=== PATIENT | male | born 1965 | race Caucasian/White ===

== ENCOUNTER 2020-11-01 17:34 | Inpatient (IN) ==
[2020-11-01] MEDS ORDERED: ASPIRIN 325 MG TABLET PO STA (18:45)
[2020-11-01] MEDS ORDERED: NITROGLYCERIN 2% OINT 1 INCH/GM PACK TOP STA (18:45)
[2020-11-01] MEDS ORDERED: FUROSEMIDE 40 MG/4 ML VIAL IV STA (18:45)
[2020-11-01 19:49] LABS: Basophils # 0.1 10*3/uL (0.0-0.2); Basophils % 0.6 % (0.0-0.8); Eosinophils # 0.2 10*3/uL (0.0-0.87); Eosinophils % 2.8 % (0.00-10.9); Hematocrit 39.4 VOL% (42.0-52.0); Hemoglobin 12.3 GM/DL (14.0-18.0); Immature Granulocytes % 0.5 %; Immature Granulocytes Absolute 0.04 #; Lymphocytes # 2.3 10*3/uL (1.4-4.0); Lymphocytes % 29.2 % (21.2-54.2); Mean Corpuscular HGB Conc 31.2 GM/DL (32-36); Mean Corpuscular Volume 99.7 FL (87-102); Neutrophils % 60.9 % (38.7-73.9); Platelet Count 200 T/CUMM (130-400); Red Blood Count 3.95 MC/CUMM (3.8-5.5); White Blood Count 7.8 T/CUMM (4-12)
[2020-11-01 20:08] LABS: Alanine Aminotransferase 25 U/L (16-61); Albumin 1.9 G/DL (3.4-5.0); Alkaline Phosphatase 279 U/L (45-117); Aspartate Amino Transferase 28 U/L (0-37); Bilirubin,Total < 0.39 MG/DL (0.2-1.0); Blood Urea Nitrogen 20 MG/DL (7-18); Calcium 7.6 MG/DL (8.5-10.1); Carbon Dioxide 31 MMOL/L (21-32); Estimated Glom Filtration Rate 46 ML/MIN; Glucose 162 MG/DL (74-106); Osmolality,Calculated 289.1 MOS/KG (273-304); Potassium 3.6 MMOL/L (3.5-5.1); Sodium 142 MMOL/L (136-145); Total Protein 5.9 G/DL (6.4-8.2)
[2020-11-01 20:10] LABS: Eosinophils 4 % (0-10); Lymphocytes 18 % (20-55); Segmented Neutrophils 75 % (50-85); Total Cells Counted 100
[2020-11-01 20:11] LABS: Anisocytosis 1+; Atypical Lymphocytes Few; Hypochromasia Slight; Macrocytosis 1+; Microcytosis Slight; Platelet Estimate Normal; Polychromasia Slight
[2020-11-01 20:15] LABS: PT Patient Result 10.9 SECS (10.5-12.0)
[2020-11-01] MEDS ORDERED: carvediloL 6.25 MG TABLET PO STA (21:29)
[2020-11-01] MEDS ORDERED: PIPERACILLIN/TAZOBACTAM 3,375 MG in SODIUM CHLORIDE 0.9% 100 ML IV SCH (21:30)
[2020-11-01] MEDS ORDERED: GLUCAGON 1 MG VIAL IM PRN ×2 (21:31)
[2020-11-01] MEDS ORDERED: MORPHINE 4 MG/1 ML VIAL IV PRN (21:31)
[2020-11-01] MEDS ORDERED: diphenhydrAMINE CAP 25 MG CAPSULE PO PRN (21:31)
[2020-11-01] MEDS ORDERED: ACETAMINOPHEN 325 MG TABLET PO PRN (21:31)
[2020-11-01] MEDS ORDERED: DEXTROSE 50% 25 GM/50 ML VIAL IV PRN ×2 (21:31)
[2020-11-01] MEDS ORDERED: hydrALAZINE 20 MG/1 ML VIAL IV PRN (21:31)
[2020-11-01] MEDS ORDERED: ONDANSETRON 4 MG/2 ML VIAL IV PRN (21:31)
[2020-11-01] MEDS ORDERED: guaiFENesin/DM ER 600-30 MG TABLET PO PRN (21:31)
[2020-11-01 22:21] LABS: Bilirubin,Urine Negative (Negative); Blood, Urine Moderate mg/dL (Negative); Glucose,Urine (UA) 50 mg/dL (Negative); Hyaline Casts,Urine 1 /LPF (0-3); Ketones,Urine Negative (Negative); Nitrite,Urine Negative (Negative); Protein,Urine 100 MG/DL; RBC,Urine 5 /HPF (0-4); Urine Appearance CLEAR (Clear); Urine Color Straw (Yellow); Urine Specific Gravity 1.005 (1.001-1.035); Urine Urobilinogen < 2.0 EU/DL (0.2-1.0)
[2020-11-02] MEDS: LEVOFLOXACIN INJ 750 MG/150 ML PREMIX IV SCH (00:01)
[2020-11-02] MEDS: metroNIDAZOLE INJ 500 MG/100 ML PREMIX IV SCH ×3 (01:55→17:15)
[2020-11-02] MEDS: ALBUTEROL 2.5 MG/3 ML NEB RESP TX SCH ×5 (02:20→19:18)
[2020-11-02 05:34] LABS: Calcium 7.8 MG/DL (8.5-10.1); Osmolality,Calculated 290.4 MOS/KG (273-304); Potassium 3.6 MMOL/L (3.5-5.1)
[2020-11-02 05:37] LABS: Basophils # 0.1 10*3/uL (0.0-0.2); Basophils % 1.1 % (0.0-0.8); Eosinophils # 0.2 10*3/uL (0.0-0.87); Eosinophils % 3.5 % (0.00-10.9); Hematocrit 38.4 VOL% (42.0-52.0); Hemoglobin 11.8 GM/DL (14.0-18.0); Immature Granulocytes % 0.4 %; Immature Granulocytes Absolute 0.02 #; Lymphocytes # 1.5 10*3/uL (1.4-4.0); Lymphocytes % 26.4 % (21.2-54.2); Mean Corpuscular HGB Conc 30.7 GM/DL (32-36); Mean Corpuscular Volume 101.1 FL (87-102); Mean Platelet Volume 10.4 FL (9.6-12.0); Monocytes % 7.4 % (1.7-12.7); Neutrophils % 61.2 % (38.7-73.9); Platelet Count 175 T/CUMM (130-400); Red Cell Distribution Width 14.4 % (9.3-17.3); White Blood Count 5.7 T/CUMM (4-12)
[2020-11-02] MEDS: PANTOPRAZOLE 40 MG TABLET PO SCH (09:49)
[2020-11-02] MEDS: FUROSEMIDE 40 MG/4 ML VIAL IV SCH ×2 (09:50→21:31)
[2020-11-02] MEDS: INSULIN LISPRO 100 UNIT/ML SUBCUT SCH ×4 (10:31→21:45)
[2020-11-02] MEDS: carvediloL 6.25 MG TABLET PO SCH ×2 (10:32→21:29)
[2020-11-02] MEDS: DOCUSATE SODIUM 100 MG CAPSULE PO SCH ×2 (10:32→21:45)
[2020-11-03] MEDS: ALBUTEROL 2.5 MG/3 ML NEB RESP TX SCH ×4 (01:15→18:55)
[2020-11-03] MEDS: metroNIDAZOLE INJ 500 MG/100 ML PREMIX IV SCH ×3 (01:40→17:53)
[2020-11-03 05:10] LABS: Calcium 8.2 MG/DL (8.5-10.1); Osmolality,Calculated 285.4 MOS/KG (273-304); Potassium 4.2 MMOL/L (3.5-5.1); Risk Ratio 2.66; VLDL Cholesterol 12.4 MG/DL
[2020-11-03] MEDS: PANTOPRAZOLE 40 MG TABLET PO SCH (09:53)
[2020-11-03] MEDS: FUROSEMIDE 40 MG/4 ML VIAL IV SCH ×3 (09:53→22:00)
[2020-11-03] MEDS: carvediloL 6.25 MG TABLET PO SCH ×2 (09:53→21:59)
[2020-11-03] MEDS: INSULIN LISPRO 100 UNIT/ML SUBCUT SCH ×4 (10:15→21:59)
[2020-11-03] MEDS: DOCUSATE SODIUM 100 MG CAPSULE PO SCH ×2 (10:17→21:59)
[2020-11-03] MEDS ORDERED: metOLazone 5 MG TABLET PO SCH (11:00)
[2020-11-03 15:30] LABS: Total Volume,Urine 400 ML (400-2000)
[2020-11-03 15:47] LABS: Total Protein 24 Hr Ur Result 1424 MG/24HR (0-149.1)
[2020-11-03 15:48] LABS: Protein/Creatinine Ratio,Urine 3.5 RATIO
[2020-11-03] MEDS: LEVOFLOXACIN INJ 750 MG/150 ML PREMIX IV SCH (21:59)
[2020-11-04] MEDS: ALBUTEROL 2.5 MG/3 ML NEB RESP TX SCH ×4 (00:55→19:21)
[2020-11-04] MEDS: NICOTINE 21 MG/24 HR PATCH TRANSDERM PRN (01:18)
[2020-11-04] MEDS: metroNIDAZOLE INJ 500 MG/100 ML PREMIX IV SCH ×2 (02:10→09:44)
[2020-11-04 05:16] LABS: Basophils # 0.1 10*3/uL (0.0-0.2); Basophils % 0.7 % (0.0-0.8); Eosinophils # 0.1 10*3/uL (0.0-0.87); Hematocrit 39.6 VOL% (42.0-52.0); Hemoglobin 12.2 GM/DL (14.0-18.0); Immature Granulocytes Absolute 0.07 #; Lymphocytes # 1.5 10*3/uL (1.4-4.0); Lymphocytes % 20.1 % (21.2-54.2); Mean Corpuscular HGB Conc 30.8 GM/DL (32-36); Mean Corpuscular Volume 103.1 FL (87-102); Mean Platelet Volume 10.5 FL (9.6-12.0); Monocytes % 7.1 % (1.7-12.7); Neutrophils % 70.1 % (38.7-73.9); Platelet Count 151 T/CUMM (130-400); Red Blood Count 3.84 MC/CUMM (3.8-5.5); Red Cell Distribution Width 14.1 % (9.3-17.3); White Blood Count 7.3 T/CUMM (4-12)
[2020-11-04 05:31] LABS: Calcium 8.3 MG/DL (8.5-10.1); Osmolality,Calculated 293.5 MOS/KG (273-304); Potassium 4.3 MMOL/L (3.5-5.1)
[2020-11-04] MEDS: INSULIN LISPRO 100 UNIT/ML SUBCUT SCH ×4 (09:43→20:54)
[2020-11-04] MEDS: DOCUSATE SODIUM 100 MG CAPSULE PO SCH ×2 (09:43→20:53)
[2020-11-04] MEDS: PANTOPRAZOLE 40 MG TABLET PO SCH (09:43)
[2020-11-04] MEDS: carvediloL 6.25 MG TABLET PO SCH ×2 (09:57→20:53)
[2020-11-04] MEDS: INSULIN GLARGINE 100 UNIT/ML SUBCUT SCH (20:54)
[2020-11-05] MEDS: ALBUTEROL 2.5 MG/3 ML NEB RESP TX SCH ×4 (00:36→18:39)
[2020-11-05] MEDS ORDERED: NOREPINEPHRINE 4 MG/4 ML VIAL IV ONE (02:06)
[2020-11-05 02:11] LABS: Basophils # 0.1 10*3/uL (0.0-0.2); Basophils % 0.6 % (0.0-0.8); Eosinophils # 0.1 10*3/uL (0.0-0.87); Hematocrit 42.2 VOL% (42.0-52.0); Hemoglobin 12.8 GM/DL (14.0-18.0); Immature Granulocytes % 4.2 %; Immature Granulocytes Absolute 0.44 #; Lymphocytes % 18.6 % (21.2-54.2); Mean Corpuscular HGB Conc 30.3 GM/DL (32-36); Mean Corpuscular Volume 103.4 FL (87-102); Mean Platelet Volume 10.5 FL (9.6-12.0); Monocytes % 6.1 % (1.7-12.7); Neutrophils % 69.5 % (38.7-73.9); Platelet Count 170 T/CUMM (130-400); Red Blood Count 4.08 MC/CUMM (3.8-5.5); Red Cell Distribution Width 13.9 % (9.3-17.3); White Blood Count 10.5 T/CUMM (4-12)
[2020-11-05] MEDS: NOREPINEPHRINE 8 MG in SODIUM CHLORIDE 0.9% 242 ML IV PRN (02:13)
[2020-11-05 02:22] LABS: INR 1.2; PT Patient Result 12.7 SECS (10.5-12.0); Partial Thromboplastin Time 27.3 SECS (23.9-33.8)
[2020-11-05] MEDS ORDERED: LACTATED RINGERS 500 ML IV ONE (02:32)
[2020-11-05] MEDS: HYDROCORTISONE 100 MG VIAL IV SCH ×4 (02:32→21:04)
[2020-11-05] MEDS ORDERED: MAGNESIUM SULF RIDER 4 GM/100 ML PREMIX IV PRN (02:40)
[2020-11-05] MEDS ORDERED: POTASSIUM CHLORIDE RIDER 20 MEQ/100 ML PREMIX IV PRN (02:40)
[2020-11-05] MEDS ORDERED: POTASSIUM CHLORIDE RIDER 10 MEQ/100 ML PREMIX IV PRN (02:40)
[2020-11-05 02:57] LABS: Amylase 30 U/L (25-115)
[2020-11-05 03:01] LABS: Albumin 1.9 G/DL (3.4-5.0); Calcium 9.2 MG/DL (8.5-10.1); Osmolality,Calculated 289.7 MOS/KG (273-304); Total Protein 6.2 G/DL (6.4-8.2)
[2020-11-05] MEDS: MIDAZOLAM 100 MG in SODIUM CHLORIDE 0.9% 80 ML IV PRN ×2 (03:09→11:50)
[2020-11-05 03:59] LABS: ABG Base Excess 1.7 MMOL/L (-2.5-2.5); ABG HCO3 25.9 MMOL/L (20-26); ABG Oxygen Saturation 96.9 % (95-100); ABG PH 7.312 (7.35-7.45); ABG PO2 89.4 MM HG (80-95); ABG TCO2 26.3 MMOL/L (23-27)
[2020-11-05] MEDS ORDERED: INSULIN LISPRO 100 UNIT/ML IV SCH (04:00)
[2020-11-05] MEDS: CISATRACURIUM 200 MG in SODIUM CHLORIDE 0.9% 180 ML IV PRN ×2 (04:00→14:20)
[2020-11-05] MEDS ORDERED: INSULIN LISPRO 100 UNIT/ML SUBCUT SCH (04:00)
[2020-11-05] MEDS: fentaNYL INJ 1,250 MCG in SODIUM CHLORIDE 0.9% 225 ML IV PRN ×3 (04:00→10:45)
[2020-11-05 04:24] LABS: Bacteria,Urine Few /HPF (Few); Bilirubin,Urine Negative (Negative); Blood, Urine Moderate mg/dL (Negative); Glucose,Urine (UA) 50 mg/dL (Negative); Ketones,Urine Negative (Negative); Mucus,Urine Few /LPF (Occasional); Nitrite,Urine Negative (Negative); Protein,Urine >=500 MG/DL; RBC,Urine 62 /HPF (0-4); Squamous Epithelial Cell,Urine Occasional /HPF (0-10); Urine Appearance CLOUDY (Clear); Urine Color Amber (Yellow); Urine Specific Gravity 1.022 (1.001-1.035)
[2020-11-05] MEDS: INSULIN REGULAR 100 UNIT/ML IV SCH ×4 (07:05→21:05)
[2020-11-05 07:49] LABS: Basophils % 0.3 % (0.0-0.8); Eosinophils % 0.2 % (0.00-10.9); Hemoglobin 11.7 GM/DL (14.0-18.0); Immature Granulocytes % 1.8 %; Immature Granulocytes Absolute 0.16 #; Lymphocytes % 11.1 % (21.2-54.2); Mean Corpuscular HGB Conc 32.5 GM/DL (32-36); Mean Platelet Volume 10.4 FL (9.6-12.0); Neutrophils % 81.6 % (38.7-73.9); Platelet Count 125 T/CUMM (130-400); Red Blood Count 3.71 MC/CUMM (3.8-5.5); Red Cell Distribution Width 13.5 % (9.3-17.3); White Blood Count 9.1 T/CUMM (4-12)
[2020-11-05 08:01] LABS: INR 1.2; PT Patient Result 13.3 SECS (10.5-12.0); Partial Thromboplastin Time 27.8 SECS (23.9-33.8)
[2020-11-05 08:09] LABS: Calcium 8.9 MG/DL (8.5-10.1); Osmolality,Calculated 289.8 MOS/KG (273-304); Potassium 3.9 MMOL/L (3.5-5.1)
[2020-11-05] MEDS: PANTOPRAZOLE 40 MG VIAL IV SCH (08:15)
[2020-11-05] MEDS: MINERAL OIL/PETROLATUM OPH OINT 3.5 GM TUBE BOTH EYES SCH ×3 (08:20→21:07)
[2020-11-05] MEDS: DOCUSATE SODIUM 100 MG CAPSULE PO SCH ×2 (09:00→21:37)
[2020-11-05] MEDS: carvediloL 6.25 MG TABLET PO SCH ×2 (09:00→21:37)
[2020-11-05] MEDS ORDERED: LIDOCAINE 2% TOP JELLY 20 ML VIAL INTRAURETH ONE ×2 (13:15→14:00)
[2020-11-05 14:04] LABS: Basophils % 0.2 % (0.0-0.8); Hematocrit 33.3 VOL% (42.0-52.0); Hemoglobin 10.8 GM/DL (14.0-18.0); Immature Granulocytes % 1.1 %; Immature Granulocytes Absolute 0.09 #; Lymphocytes % 12.7 % (21.2-54.2); Mean Corpuscular HGB Conc 32.4 GM/DL (32-36); Mean Platelet Volume 10.4 FL (9.6-12.0); Monocytes % 3.9 % (1.7-12.7); Neutrophils % 82.1 % (38.7-73.9); Platelet Count 132 T/CUMM (130-400); Red Blood Count 3.47 MC/CUMM (3.8-5.5); Red Cell Distribution Width 13.5 % (9.3-17.3); White Blood Count 8.1 T/CUMM (4-12)
[2020-11-05] MEDS: fentaNYL INJ 2,500 MCG in SODIUM CHLORIDE 0.9% 200 ML IV PRN ×2 (14:10→20:49)
[2020-11-05 14:15] LABS: INR 1.2; PT Patient Result 13.5 SECS (10.5-12.0)
[2020-11-05 14:52] LABS: Osmolality,Calculated 295.5 MOS/KG (273-304); Potassium 3.7 MMOL/L (3.5-5.1)
[2020-11-05 20:16] LABS: Basophils % 0.2 % (0.0-0.8); Hematocrit 32.1 VOL% (42.0-52.0); Hemoglobin 10.6 GM/DL (14.0-18.0); Immature Granulocytes % 1.1 %; Immature Granulocytes Absolute 0.07 #; Lymphocytes # 0.9 10*3/uL (1.4-4.0); Lymphocytes % 14.1 % (21.2-54.2); Mean Platelet Volume 10.6 FL (9.6-12.0); Monocytes % 4.4 % (1.7-12.7); Neutrophils % 80.2 % (38.7-73.9); Platelet Count 129 T/CUMM (130-400); Red Blood Count 3.38 MC/CUMM (3.8-5.5); Red Cell Distribution Width 13.3 % (9.3-17.3); White Blood Count 6.2 T/CUMM (4-12)
[2020-11-05 20:26] LABS: INR 1.2; PT Patient Result 13.6 SECS (10.5-12.0); Partial Thromboplastin Time 27.6 SECS (23.9-33.8)
[2020-11-05 20:36] LABS: Calcium 8.3 MG/DL (8.5-10.1); Osmolality,Calculated 295.7 MOS/KG (273-304); Potassium 3.4 MMOL/L (3.5-5.1)
[2020-11-05] MEDS: INSULIN GLARGINE 100 UNIT/ML SUBCUT SCH (21:38)
[2020-11-06] MEDS: INSULIN REGULAR 100 UNIT/ML IV SCH ×6 (00:31→21:35)
[2020-11-06] MEDS: MIDAZOLAM 100 MG in SODIUM CHLORIDE 0.9% 80 ML IV PRN ×2 (00:41→18:15)
[2020-11-06] MEDS: ALBUTEROL 2.5 MG/3 ML NEB RESP TX SCH ×4 (01:10→18:18)
[2020-11-06] MEDS: HYDROCORTISONE 100 MG VIAL IV SCH ×4 (03:01→21:44)
[2020-11-06 03:03] LABS: ABG Base Excess 0.6 MMOL/L (-2.5-2.5); ABG Oxygen Saturation 99.7 % (95-100); ABG PCO2 33.2 MM HG (35-48); ABG PH 7.464 (7.35-7.45); ABG TCO2 21.2 MMOL/L (23-27)
[2020-11-06 03:04] LABS: Basophils % 0.1 % (0.0-0.8); Hematocrit 31.5 VOL% (42.0-52.0); Hemoglobin 10.5 GM/DL (14.0-18.0); Immature Granulocytes % 0.9 %; Immature Granulocytes Absolute 0.06 #; Lymphocytes # 0.9 10*3/uL (1.4-4.0); Lymphocytes % 12.8 % (21.2-54.2); Mean Corpuscular HGB Conc 33.3 GM/DL (32-36); Mean Platelet Volume 10.9 FL (9.6-12.0); Monocytes % 3.8 % (1.7-12.7); Neutrophils % 82.4 % (38.7-73.9); Platelet Count 138 T/CUMM (130-400); Red Blood Count 3.35 MC/CUMM (3.8-5.5); Red Cell Distribution Width 13.5 % (9.3-17.3); White Blood Count 6.9 T/CUMM (4-12)
[2020-11-06 03:16] LABS: Osmolality,Calculated 300.4 MOS/KG (273-304); Potassium 3.4 MMOL/L (3.5-5.1)
[2020-11-06] MEDS: fentaNYL INJ 2,500 MCG in SODIUM CHLORIDE 0.9% 200 ML IV PRN ×4 (03:44→21:46)
[2020-11-06 03:47] LABS: Platelet Estimate Adequate
[2020-11-06 03:49] LABS: INR 1.2; PT Patient Result 13.5 SECS (10.5-12.0); Partial Thromboplastin Time 27.4 SECS (23.9-33.8)
[2020-11-06] MEDS: CISATRACURIUM 200 MG in SODIUM CHLORIDE 0.9% 180 ML IV PRN (04:25)
[2020-11-06] MEDS: PANTOPRAZOLE 40 MG VIAL IV SCH (08:10)
[2020-11-06] MEDS: MINERAL OIL/PETROLATUM OPH OINT 3.5 GM TUBE BOTH EYES SCH ×3 (08:15→21:44)
[2020-11-06 08:33] LABS: Basophils % 0.1 % (0.0-0.8); Hematocrit 31.7 VOL% (42.0-52.0); Hemoglobin 10.4 GM/DL (14.0-18.0); Immature Granulocytes % 0.5 %; Immature Granulocytes Absolute 0.04 #; Lymphocytes # 0.9 10*3/uL (1.4-4.0); Mean Corpuscular HGB Conc 32.8 GM/DL (32-36); Mean Corpuscular Volume 94.9 FL (87-102); Mean Platelet Volume 10.6 FL (9.6-12.0); Monocytes % 1.3 % (1.7-12.7); Neutrophils % 86.1 % (38.7-73.9); Platelet Count 126 T/CUMM (130-400); Red Blood Count 3.34 MC/CUMM (3.8-5.5); Red Cell Distribution Width 13.6 % (9.3-17.3); White Blood Count 7.4 T/CUMM (4-12)
[2020-11-06 08:43] LABS: INR 1.3
[2020-11-06 09:00] LABS: Calcium 8.1 MG/DL (8.5-10.1); Osmolality,Calculated 297.7 MOS/KG (273-304); Potassium 3.1 MMOL/L (3.5-5.1)
[2020-11-06] MEDS: carvediloL 6.25 MG TABLET PO SCH ×2 (09:00→21:21)
[2020-11-06] MEDS: DOCUSATE SODIUM 100 MG CAPSULE PO SCH ×2 (09:00→21:21)
[2020-11-06 09:04] LABS: CKMB % 8.5 %
[2020-11-06 09:12] LABS: High Sensitive Troponin I* 327.3 ng/L (0-78)
[2020-11-06] MEDS: NOREPINEPHRINE 8 MG in SODIUM CHLORIDE 0.9% 242 ML IV PRN (10:50)
[2020-11-06] MEDS ORDERED: FOSPHENYTOIN 1,000 MG.PE in SODIUM CHLORIDE 0.9% 250 ML IV ONE (13:30)
[2020-11-06 13:33] LABS: ABG Base Excess -3.7 MMOL/L (-2.5-2.5); ABG HCO3 21.2 MMOL/L (20-26); ABG Oxygen Saturation 93.3 % (95-100); ABG PCO2 48.1 MM HG (35-48); ABG PH 7.292 (7.35-7.45); ABG PO2 83.5 MM HG (80-95); ABG TCO2 20.7 MMOL/L (23-27)
[2020-11-06 13:48] LABS: INR 1.2; PT Patient Result 13.5 SECS (10.5-12.0); Partial Thromboplastin Time 27.6 SECS (23.9-33.8)
[2020-11-06 13:59] LABS: Basophils % 0.2 % (0.0-0.8); Hemoglobin 12.1 GM/DL (14.0-18.0); Immature Granulocytes % 1.3 %; Immature Granulocytes Absolute 0.17 #; Lymphocytes # 1.4 10*3/uL (1.4-4.0); Lymphocytes % 10.3 % (21.2-54.2); Mean Corpuscular HGB Conc 32.7 GM/DL (32-36); Mean Corpuscular Volume 94.9 FL (87-102); Mean Platelet Volume 10.8 FL (9.6-12.0); Monocytes % 3.7 % (1.7-12.7); Neutrophils % 84.5 % (38.7-73.9); Platelet Count 196 T/CUMM (130-400); Red Cell Distribution Width 13.9 % (9.3-17.3)
[2020-11-06 14:04] LABS: White Blood Count 13.1 T/CUMM (4-12)
[2020-11-06 14:06] LABS: Blood Urea Nitrogen 67 MG/DL (7-18); Calcium 8.3 MG/DL (8.5-10.1); Carbon Dioxide 23 MMOL/L (21-32); Estimated Glom Filtration Rate 13 ML/MIN; Glucose 264 MG/DL (74-106); Osmolality,Calculated 302.7 MOS/KG (273-304); Potassium 4.2 MMOL/L (3.5-5.1); Sodium 138 MMOL/L (136-145)
[2020-11-06 14:16] LABS: CKMB % 8.2 %; High Sensitive Troponin I* 363.1 ng/L (0-78)
[2020-11-06] MEDS ORDERED: EPINEPHrine 1 MG/ML VIAL ONE (17:15)
[2020-11-06] MEDS ORDERED: INSULIN REGULAR 100 UNIT/ML SUBCUT SCH (20:00)
[2020-11-06 20:49] LABS: Basophils % 0.1 % (0.0-0.8); Hemoglobin 10.8 GM/DL (14.0-18.0); Immature Granulocytes % 1.2 %; Lymphocytes % 6.3 % (21.2-54.2); Mean Corpuscular HGB Conc 32.7 GM/DL (32-36); Mean Corpuscular Volume 96.2 FL (87-102); Monocytes % 3.5 % (1.7-12.7); Neutrophils % 88.9 % (38.7-73.9); Platelet Count 219 T/CUMM (130-400); Red Blood Count 3.43 MC/CUMM (3.8-5.5); Red Cell Distribution Width 14.3 % (9.3-17.3); White Blood Count 16.4 T/CUMM (4-12)
[2020-11-06 21:00] LABS: INR 1.2; PT Patient Result 13.2 SECS (10.5-12.0); Partial Thromboplastin Time 26.9 SECS (23.9-33.8)
[2020-11-06 21:14] LABS: Osmolality,Calculated 305.5 MOS/KG (273-304); Potassium 3.8 MMOL/L (3.5-5.1)
[2020-11-06] MEDS: INSULIN GLARGINE 100 UNIT/ML SUBCUT SCH (21:43)
[2020-11-06 23:33] LABS: ABG Base Excess -4.7 MMOL/L (-2.5-2.5); ABG HCO3 20.5 MMOL/L (20-26); ABG Oxygen Saturation 95.4 % (95-100); ABG PCO2 42.4 MM HG (35-48); ABG PH 7.312 (7.35-7.45); ABG TCO2 19.2 MMOL/L (23-27)
[2020-11-07] MEDS: INSULIN REGULAR 100 UNIT/ML SUBCUT SCH ×6 (00:25→20:59)
[2020-11-07 03:00] LABS: ABG Base Excess -2.4 MMOL/L (-2.5-2.5); ABG HCO3 22.3 MMOL/L (20-26); ABG Oxygen Saturation 95.5 % (95-100); ABG PCO2 42.8 MM HG (35-48); ABG PH 7.343 (7.35-7.45); ABG PO2 86.2 MM HG (80-95); ABG TCO2 20.8 MMOL/L (23-27)
[2020-11-07] MEDS: HYDROCORTISONE 100 MG VIAL IV SCH ×4 (03:03→21:00)
[2020-11-07 03:11] LABS: Basophils % 0.1 % (0.0-0.8); Hematocrit 35.4 VOL% (42.0-52.0); Hemoglobin 11.5 GM/DL (14.0-18.0); Immature Granulocytes Absolute 0.18 #; Lymphocytes # 1.3 10*3/uL (1.4-4.0); Lymphocytes % 7.6 % (21.2-54.2); Mean Corpuscular HGB Conc 32.5 GM/DL (32-36); Mean Corpuscular Volume 96.2 FL (87-102); Mean Platelet Volume 10.7 FL (9.6-12.0); Monocytes % 3.7 % (1.7-12.7); Neutrophils % 87.6 % (38.7-73.9); Platelet Count 248 T/CUMM (130-400); Red Blood Count 3.68 MC/CUMM (3.8-5.5); Red Cell Distribution Width 14.5 % (9.3-17.3); White Blood Count 17.4 T/CUMM (4-12)
[2020-11-07 03:30] LABS: INR 1.2; PT Patient Result 12.8 SECS (10.5-12.0); Partial Thromboplastin Time 26.5 SECS (23.9-33.8)
[2020-11-07 03:38] LABS: Albumin 1.7 G/DL (3.4-5.0); Bilirubin,Total 0.6 MG/DL (0.2-1.0); Calcium 7.9 MG/DL (8.5-10.1); Osmolality,Calculated 311.4 MOS/KG (273-304)
[2020-11-07 03:46] LABS: Calcium 8.3 MG/DL (8.5-10.1); Osmolality,Calculated 308.5 MOS/KG (273-304); Potassium 3.9 MMOL/L (3.5-5.1)
[2020-11-07] MEDS: NOREPINEPHRINE 8 MG in SODIUM CHLORIDE 0.9% 242 ML IV PRN (05:40)
[2020-11-07] MEDS: ALBUTEROL 2.5 MG/3 ML NEB RESP TX SCH ×4 (07:31→19:04)
[2020-11-07] MEDS: PANTOPRAZOLE 40 MG VIAL IV SCH (08:17)
[2020-11-07] MEDS: MINERAL OIL/PETROLATUM OPH OINT 3.5 GM TUBE BOTH EYES SCH ×3 (08:18→21:18)
[2020-11-07] MEDS: ASPIRIN CHEW 81 MG TABLET PO SCH (09:44)
[2020-11-07] MEDS: carvediloL 6.25 MG TABLET PO SCH (10:23)
[2020-11-07] MEDS: DOCUSATE SODIUM 100 MG CAPSULE PO SCH ×2 (10:34→21:00)
[2020-11-07] MEDS: AZTREONAM 1,000 MG in SODIUM CHLORIDE 0.9% 100 ML IV SCH ×2 (11:24→20:56)
[2020-11-07 12:25] LABS: Hepatitis B Core IgM Quant < 0.05 Index; Hepatitis B Surface Ag Quant < 0.10 Index; Hepatitis B Surface Ag Result Non-Reactive (NonReactive); Hepatitis C Virus Ab Quant 0.05 Index; Hepatitis C Virus Ab Result Non-Reactive (NonReactive)
[2020-11-07 12:33] LABS: HIV Antigen/Antibody Result Nonreactive (Nonreactive)
[2020-11-07] MEDS ORDERED: VANCOMYCIN INJ 2,000 MG in SODIUM CHLORIDE 0.9% 500 ML IV ONE (14:00)
[2020-11-07] MEDS ORDERED: VANCOMYCIN INJ 750 MG in SODIUM CHLORIDE 0.9% 250 ML IV PRN (14:16)
[2020-11-07] MEDS: INSULIN GLARGINE 100 UNIT/ML SUBCUT SCH (20:59)
[2020-11-08] MEDS: ALBUTEROL 2.5 MG/3 ML NEB RESP TX SCH ×4 (00:08→19:23)
[2020-11-08] MEDS: INSULIN REGULAR 100 UNIT/ML SUBCUT SCH ×7 (00:58→23:09)
[2020-11-08] MEDS: HYDROCORTISONE 100 MG VIAL IV SCH ×4 (03:24→20:06)
[2020-11-08] MEDS: AZTREONAM 1,000 MG in SODIUM CHLORIDE 0.9% 100 ML IV SCH ×3 (03:25→19:56)
[2020-11-08 06:07] LABS: Basophils % 0.1 % (0.0-0.8); Hematocrit 30.5 VOL% (42.0-52.0); Hemoglobin 10.3 GM/DL (14.0-18.0); Immature Granulocytes % 0.5 %; Immature Granulocytes Absolute 0.05 #; Lymphocytes % 9.4 % (21.2-54.2); Mean Corpuscular HGB Conc 33.8 GM/DL (32-36); Mean Corpuscular Volume 94.1 FL (87-102); Mean Platelet Volume 10.7 FL (9.6-12.0); Platelet Count 131 T/CUMM (130-400); Red Blood Count 3.24 MC/CUMM (3.8-5.5); Red Cell Distribution Width 14.6 % (9.3-17.3)
[2020-11-08 06:21] LABS: Calcium 8.3 MG/DL (8.5-10.1); Osmolality,Calculated 314.1 MOS/KG (273-304); Potassium 3.5 MMOL/L (3.5-5.1)
[2020-11-08 08:13] LABS: ABG Base Excess -1.6 MMOL/L (-2.5-2.5); ABG HCO3 23.3 MMOL/L (20-26); ABG Oxygen Saturation 97.5 % (95-100); ABG PCO2 39.8 MM HG (35-48); ABG PH 7.385 (7.35-7.45); ABG PO2 108.7 MM HG (80-95); ABG TCO2 24.5 MMOL/L (23-27)
[2020-11-08] MEDS: PANTOPRAZOLE 40 MG VIAL IV SCH (08:21)
[2020-11-08] MEDS: DOCUSATE SODIUM 100 MG CAPSULE PO SCH ×2 (08:25→20:09)
[2020-11-08] MEDS: ASPIRIN CHEW 81 MG TABLET PO SCH (08:25)
[2020-11-08] MEDS: MINERAL OIL/PETROLATUM OPH OINT 3.5 GM TUBE BOTH EYES SCH ×3 (08:34→20:09)
[2020-11-08] MEDS ORDERED: POTASSIUM CHLORIDE RIDER 20 MEQ/100 ML PREMIX IV ONE (14:27)
[2020-11-08] MEDS ORDERED: VANCOMYCIN INJ 750 MG in SODIUM CHLORIDE 0.9% 250 ML IV ONE (17:30)
[2020-11-08] MEDS: INSULIN GLARGINE 100 UNIT/ML SUBCUT SCH (20:06)
[2020-11-09] MEDS: ALBUTEROL 2.5 MG/3 ML NEB RESP TX SCH ×4 (00:12→19:37)
[2020-11-09] MEDS: AZTREONAM 1,000 MG in SODIUM CHLORIDE 0.9% 100 ML IV SCH ×3 (03:10→20:40)
[2020-11-09] MEDS: HYDROCORTISONE 100 MG VIAL IV SCH ×4 (03:10→20:45)
[2020-11-09 03:29] LABS: ABG Base Excess 1.1 MMOL/L (-2.5-2.5); ABG HCO3 25.4 MMOL/L (20-26); ABG Oxygen Saturation 98.7 % (95-100); ABG PCO2 39.3 MM HG (35-48); ABG PH 7.421 (7.35-7.45); ABG TCO2 22.7 MMOL/L (23-27)
[2020-11-09 03:30] LABS: Basophils % 0.1 % (0.0-0.8); Eosinophils % 0.1 % (0.00-10.9); Hematocrit 30.4 VOL% (42.0-52.0); Hemoglobin 10.1 GM/DL (14.0-18.0); Immature Granulocytes % 0.5 %; Immature Granulocytes Absolute 0.06 #; Lymphocytes % 8.7 % (21.2-54.2); Mean Corpuscular HGB Conc 33.2 GM/DL (32-36); Mean Corpuscular Volume 95.3 FL (87-102); Mean Platelet Volume 10.4 FL (9.6-12.0); Monocytes % 4.3 % (1.7-12.7); Neutrophils % 86.3 % (38.7-73.9); Platelet Count 120 T/CUMM (130-400); Red Blood Count 3.19 MC/CUMM (3.8-5.5); Red Cell Distribution Width 14.5 % (9.3-17.3); White Blood Count 11.9 T/CUMM (4-12)
[2020-11-09 03:47] LABS: Albumin 1.6 G/DL (3.4-5.0); Bilirubin,Total 0.4 MG/DL (0.2-1.0); Calcium 7.9 MG/DL (8.5-10.1); Osmolality,Calculated 303.4 MOS/KG (273-304); Potassium 3.5 MMOL/L (3.5-5.1); Total Protein 5.3 G/DL (6.4-8.2)
[2020-11-09 04:07] LABS: Calcium 7.7 MG/DL (8.5-10.1); Osmolality,Calculated 305.3 MOS/KG (273-304); Potassium 3.5 MMOL/L (3.5-5.1)
[2020-11-09] MEDS: INSULIN REGULAR 100 UNIT/ML SUBCUT SCH ×6 (05:54→23:24)
[2020-11-09] MEDS: DOCUSATE SODIUM 100 MG CAPSULE PO SCH ×2 (08:54→20:45)
[2020-11-09] MEDS: ASPIRIN CHEW 81 MG TABLET PO SCH (08:54)
[2020-11-09] MEDS: PANTOPRAZOLE 40 MG VIAL IV SCH (08:56)
[2020-11-09] MEDS: MINERAL OIL/PETROLATUM OPH OINT 3.5 GM TUBE BOTH EYES SCH ×3 (09:02→20:45)
[2020-11-09] MEDS: INSULIN GLARGINE 100 UNIT/ML SUBCUT SCH (20:46)
[2020-11-10] MEDS: ALBUTEROL 2.5 MG/3 ML NEB RESP TX SCH ×4 (01:36→19:17)
[2020-11-10] MEDS: AZTREONAM 1,000 MG in SODIUM CHLORIDE 0.9% 100 ML IV SCH ×3 (03:21→17:49)
[2020-11-10] MEDS: HYDROCORTISONE 100 MG VIAL IV SCH ×4 (03:21→20:39)
[2020-11-10 03:53] LABS: ABG Base Excess 2.6 MMOL/L (-2.5-2.5); ABG HCO3 26.7 MMOL/L (20-26); ABG Oxygen Saturation 99.2 % (95-100); ABG PCO2 39.3 MM HG (35-48); ABG PH 7.441 (7.35-7.45); ABG TCO2 23.9 MMOL/L (23-27)
[2020-11-10 04:01] LABS: Eosinophils % 0.2 % (0.00-10.9); Hematocrit 31.8 VOL% (42.0-52.0); Hemoglobin 10.2 GM/DL (14.0-18.0); Immature Granulocytes % 0.6 %; Immature Granulocytes Absolute 0.07 #; Lymphocytes # 1.1 10*3/uL (1.4-4.0); Mean Corpuscular HGB Conc 32.1 GM/DL (32-36); Mean Corpuscular Volume 96.7 FL (87-102); Mean Platelet Volume 10.5 FL (9.6-12.0); Monocytes % 4.7 % (1.7-12.7); Neutrophils % 84.5 % (38.7-73.9); Platelet Count 148 T/CUMM (130-400); Red Blood Count 3.29 MC/CUMM (3.8-5.5); Red Cell Distribution Width 14.7 % (9.3-17.3); White Blood Count 10.8 T/CUMM (4-12)
[2020-11-10 04:20] LABS: Calcium 8.2 MG/DL (8.5-10.1); Potassium 3.3 MMOL/L (3.5-5.1)
[2020-11-10] MEDS: INSULIN REGULAR 100 UNIT/ML SUBCUT SCH ×5 (04:49→23:58)
[2020-11-10] MEDS: DOCUSATE SODIUM 100 MG CAPSULE PO SCH ×2 (09:19→20:39)
[2020-11-10] MEDS: PANTOPRAZOLE 40 MG VIAL IV SCH (09:19)
[2020-11-10] MEDS: ASPIRIN CHEW 81 MG TABLET PO SCH (09:19)
[2020-11-10] MEDS: MINERAL OIL/PETROLATUM OPH OINT 3.5 GM TUBE BOTH EYES SCH ×3 (09:21→21:52)
[2020-11-10] MEDS ORDERED: HEPARIN 10,000 UNIT/10 ML VIAL IV SCH (09:30)
[2020-11-10] MEDS ORDERED: ALTEPLASE 2 MG VIAL IV SCH (09:30)
[2020-11-10] MEDS ORDERED: VANCOMYCIN INJ 750 MG in SODIUM CHLORIDE 0.9% 250 ML IV ONE (17:00)
[2020-11-10] MEDS: ENOXAPARIN 30 MG/0.3 ML SYRINGE SUBCUT SCH (20:39)
[2020-11-10] MEDS: INSULIN GLARGINE 100 UNIT/ML SUBCUT SCH (20:40)
[2020-11-11] MEDS: ALBUTEROL 2.5 MG/3 ML NEB RESP TX SCH ×4 (02:05→20:27)
[2020-11-11] MEDS: HYDROCORTISONE 100 MG VIAL IV SCH ×3 (02:55→20:31)
[2020-11-11] MEDS: INSULIN REGULAR 100 UNIT/ML SUBCUT SCH ×4 (04:05→19:08)
[2020-11-11 04:09] LABS: ABG Base Excess 3.8 MMOL/L (-2.5-2.5); ABG HCO3 28.3 MMOL/L (20-26); ABG Oxygen Saturation 98.5 % (95-100); ABG PCO2 42.4 MM HG (35-48); ABG PH 7.442 (7.35-7.45); ABG PO2 135.5 MM HG (80-95); ABG TCO2 29.6 MMOL/L (23-27); Eosinophils # 0.1 10*3/uL (0.0-0.87); Eosinophils % 1.6 % (0.00-10.9); Hematocrit 31.4 VOL% (42.0-52.0); Hemoglobin 9.9 GM/DL (14.0-18.0); Immature Granulocytes % 0.7 %; Immature Granulocytes Absolute 0.06 #; Lymphocytes # 1.3 10*3/uL (1.4-4.0); Lymphocytes % 14.4 % (21.2-54.2); Mean Corpuscular HGB Conc 31.5 GM/DL (32-36); Mean Corpuscular Volume 98.7 FL (87-102); Mean Platelet Volume 10.1 FL (9.6-12.0); Monocytes % 5.3 % (1.7-12.7); Platelet Count 149 T/CUMM (130-400); Red Blood Count 3.18 MC/CUMM (3.8-5.5); Red Cell Distribution Width 14.5 % (9.3-17.3); White Blood Count 8.8 T/CUMM (4-12)
[2020-11-11 04:26] LABS: Osmolality,Calculated 316.8 MOS/KG (273-304); Potassium 3.1 MMOL/L (3.5-5.1)
[2020-11-11] MEDS ORDERED: POTASSIUM CHLORIDE 20 MEQ/15 ML UDCUP PER TUBE ONE (07:34)
[2020-11-11] MEDS: PANTOPRAZOLE 40 MG VIAL IV SCH (09:41)
[2020-11-11] MEDS: ASPIRIN CHEW 81 MG TABLET PO SCH (09:41)
[2020-11-11] MEDS: DOCUSATE SODIUM 100 MG CAPSULE PO SCH ×2 (10:09→20:32)
[2020-11-11] MEDS: MINERAL OIL/PETROLATUM OPH OINT 3.5 GM TUBE BOTH EYES SCH ×3 (10:09→21:18)
[2020-11-11] MEDS: AZTREONAM 1,000 MG in SODIUM CHLORIDE 0.9% 100 ML IV SCH (15:46)
[2020-11-11] MEDS: ENOXAPARIN 30 MG/0.3 ML SYRINGE SUBCUT SCH (20:32)
[2020-11-11] MEDS: INSULIN GLARGINE 100 UNIT/ML SUBCUT SCH (20:32)
[2020-11-12] MEDS: ALBUTEROL 2.5 MG/3 ML NEB RESP TX SCH ×4 (00:05→19:35)
[2020-11-12] MEDS: INSULIN REGULAR 100 UNIT/ML SUBCUT SCH ×4 (00:58→18:36)
[2020-11-12 05:04] LABS: Eosinophils # 0.4 10*3/uL (0.0-0.87); Eosinophils % 4.5 % (0.00-10.9); Hematocrit 31.9 VOL% (42.0-52.0); Hemoglobin 10.4 GM/DL (14.0-18.0); Immature Granulocytes % 0.6 %; Immature Granulocytes Absolute 0.05 #; Lymphocytes # 1.1 10*3/uL (1.4-4.0); Lymphocytes % 13.5 % (21.2-54.2); Mean Corpuscular HGB Conc 32.6 GM/DL (32-36); Mean Corpuscular Volume 97.6 FL (87-102); Mean Platelet Volume 10.3 FL (9.6-12.0); Monocytes % 5.5 % (1.7-12.7); Neutrophils % 75.9 % (38.7-73.9); Platelet Count 157 T/CUMM (130-400); Red Blood Count 3.27 MC/CUMM (3.8-5.5); Red Cell Distribution Width 14.5 % (9.3-17.3); White Blood Count 8.2 T/CUMM (4-12)
[2020-11-12 05:08] LABS: ABG Base Excess 4.9 MMOL/L (-2.5-2.5); ABG HCO3 29.8 MMOL/L (20-26); ABG PCO2 45.4 MM HG (35-48); ABG PH 7.435 (7.35-7.45); ABG PO2 115.7 MM HG (80-95); ABG TCO2 31.2 MMOL/L (23-27)
[2020-11-12 05:14] LABS: Calcium 7.9 MG/DL (8.5-10.1); Osmolality,Calculated 324.3 MOS/KG (273-304); Potassium 3.4 MMOL/L (3.5-5.1)
[2020-11-12] MEDS: HYDROCORTISONE 100 MG VIAL IV SCH ×2 (08:29→21:15)
[2020-11-12] MEDS ORDERED: VANCOMYCIN INJ 1,000 MG in SODIUM CHLORIDE 0.9% 250 ML IV PRN (08:30)
[2020-11-12] MEDS: DOCUSATE SODIUM 100 MG CAPSULE PO SCH ×2 (08:32→21:22)
[2020-11-12] MEDS: ASPIRIN CHEW 81 MG TABLET PO SCH (08:32)
[2020-11-12] MEDS: PANTOPRAZOLE 40 MG VIAL IV SCH (08:33)
[2020-11-12] MEDS: MINERAL OIL/PETROLATUM OPH OINT 3.5 GM TUBE BOTH EYES SCH ×3 (08:33→21:33)
[2020-11-12] MEDS ORDERED: levETIRAcetam LIQUID 100 MG/ML 30 ML/BOTTLE PER TUBE SCH ×2 (09:00)
[2020-11-12] MEDS: AZTREONAM 1,000 MG in SODIUM CHLORIDE 0.9% 100 ML IV SCH (15:30)
[2020-11-12] MEDS: ENOXAPARIN 30 MG/0.3 ML SYRINGE SUBCUT SCH (21:22)
[2020-11-12] MEDS: levETIRAcetam LIQUID 100 MG/ML 30 ML/BOTTLE PER TUBE SCH (21:22)
[2020-11-12] MEDS: INSULIN GLARGINE 100 UNIT/ML SUBCUT SCH (21:22)
[2020-11-13] MEDS: INSULIN REGULAR 100 UNIT/ML SUBCUT SCH ×4 (00:02→18:07)
[2020-11-13] MEDS: ALBUTEROL 2.5 MG/3 ML NEB RESP TX SCH ×4 (00:42→19:28)
[2020-11-13 04:18] LABS: ABG Base Excess 6.9 MMOL/L (-2.5-2.5); ABG HCO3 30.7 MMOL/L (20-26); ABG Oxygen Saturation 98.3 % (95-100); ABG PCO2 42.3 MM HG (35-48); ABG PH 7.477 (7.35-7.45); ABG TCO2 25.5 MMOL/L (23-27)
[2020-11-13 04:39] LABS: Basophils % 0.1 % (0.0-0.8); Eosinophils # 0.5 10*3/uL (0.0-0.87); Eosinophils % 5.9 % (0.00-10.9); Hematocrit 28.5 VOL% (42.0-52.0); Hemoglobin 9.3 GM/DL (14.0-18.0); Immature Granulocytes % 0.6 %; Immature Granulocytes Absolute 0.05 #; Lymphocytes # 1.4 10*3/uL (1.4-4.0); Lymphocytes % 18.1 % (21.2-54.2); Mean Corpuscular HGB Conc 32.6 GM/DL (32-36); Mean Corpuscular Volume 97.9 FL (87-102); Mean Platelet Volume 10.4 FL (9.6-12.0); Neutrophils % 70.3 % (38.7-73.9); Platelet Count 153 T/CUMM (130-400); Red Blood Count 2.91 MC/CUMM (3.8-5.5); Red Cell Distribution Width 14.2 % (9.3-17.3)
[2020-11-13 05:07] LABS: Calcium 7.9 MG/DL (8.5-10.1); Osmolality,Calculated 322.7 MOS/KG (273-304)
[2020-11-13] MEDS: DOCUSATE SODIUM 100 MG CAPSULE PO SCH ×2 (08:03→20:25)
[2020-11-13] MEDS: NICOTINE 21 MG/24 HR PATCH TRANSDERM PRN (08:31)
[2020-11-13] MEDS: HYDROCORTISONE 100 MG VIAL IV SCH ×2 (08:31→20:25)
[2020-11-13] MEDS: ASPIRIN CHEW 81 MG TABLET PO SCH (08:31)
[2020-11-13] MEDS: PANTOPRAZOLE 40 MG VIAL IV SCH (08:32)
[2020-11-13] MEDS: levETIRAcetam LIQUID 100 MG/ML 30 ML/BOTTLE PER TUBE SCH ×2 (08:55→20:32)
[2020-11-13] MEDS: MINERAL OIL/PETROLATUM OPH OINT 3.5 GM TUBE BOTH EYES SCH ×3 (08:55→20:48)
[2020-11-13] MEDS: ALPRAZolam 0.25 MG TABLET PER TUBE PRN (10:18)
[2020-11-13] MEDS: POTASSIUM CHLORIDE 20 MEQ/15 ML UDCUP PER TUBE SCH ×3 (10:18→18:08)
[2020-11-13] MEDS: AZTREONAM 1,000 MG in SODIUM CHLORIDE 0.9% 100 ML IV SCH (15:43)
[2020-11-13] MEDS: INSULIN GLARGINE 100 UNIT/ML SUBCUT SCH (20:25)
[2020-11-13] MEDS: ENOXAPARIN 30 MG/0.3 ML SYRINGE SUBCUT SCH (20:25)
[2020-11-14] MEDS: INSULIN REGULAR 100 UNIT/ML SUBCUT SCH ×4 (00:40→18:15)
[2020-11-14] MEDS: ALBUTEROL 2.5 MG/3 ML NEB RESP TX SCH ×4 (00:57→20:38)
[2020-11-14 04:31] LABS: ABG Base Excess 6.7 MMOL/L (-2.5-2.5); ABG HCO3 30.6 MMOL/L (20-26); ABG PCO2 39.8 MM HG (35-48); ABG PH 7.493 (7.35-7.45); ABG TCO2 27.9 MMOL/L (23-27)
[2020-11-14 04:43] LABS: Eosinophils # 0.3 10*3/uL (0.0-0.87); Eosinophils % 3.9 % (0.00-10.9); Hematocrit 30.4 VOL% (42.0-52.0); Hemoglobin 9.3 GM/DL (14.0-18.0); Immature Granulocytes % 0.6 %; Immature Granulocytes Absolute 0.05 #; Lymphocytes # 1.7 10*3/uL (1.4-4.0); Lymphocytes % 20.4 % (21.2-54.2); Mean Corpuscular HGB Conc 30.6 GM/DL (32-36); Mean Corpuscular Volume 101.7 FL (87-102); Mean Platelet Volume 10.8 FL (9.6-12.0); Monocytes % 5.4 % (1.7-12.7); Neutrophils % 69.7 % (38.7-73.9); Platelet Count 168 T/CUMM (130-400); Red Blood Count 2.99 MC/CUMM (3.8-5.5); White Blood Count 8.2 T/CUMM (4-12)
[2020-11-14 05:23] LABS: Osmolality,Calculated 311.4 MOS/KG (273-304)
[2020-11-14 05:28] LABS: Potassium 3.5 MMOL/L (3.5-5.1)
[2020-11-14] MEDS ORDERED: FUROSEMIDE 40 MG/4 ML VIAL IV ONE (07:58)
[2020-11-14] MEDS: ASPIRIN CHEW 81 MG TABLET PO SCH (08:30)
[2020-11-14] MEDS: levETIRAcetam LIQUID 100 MG/ML 30 ML/BOTTLE PER TUBE SCH ×2 (08:30→20:34)
[2020-11-14] MEDS: DOCUSATE SODIUM 100 MG CAPSULE PO SCH ×2 (08:30→20:34)
[2020-11-14] MEDS: PANTOPRAZOLE 40 MG VIAL IV SCH (08:35)
[2020-11-14] MEDS: HYDROCORTISONE 100 MG VIAL IV SCH (08:35)
[2020-11-14] MEDS: ALPRAZolam 0.25 MG TABLET PER TUBE PRN ×2 (08:35→20:35)
[2020-11-14] MEDS: MINERAL OIL/PETROLATUM OPH OINT 3.5 GM TUBE BOTH EYES SCH ×3 (08:40→20:33)
[2020-11-14] MEDS ORDERED: HYDROCORTISONE 100 MG VIAL IV SCH (09:00)
[2020-11-14] MEDS: methylPREDNISolone SOD SUC 40 MG/1 ML VIAL IV SCH ×2 (14:10→20:33)
[2020-11-14] MEDS: AZTREONAM 1,000 MG in SODIUM CHLORIDE 0.9% 100 ML IV SCH (18:20)
[2020-11-14] MEDS: ENOXAPARIN 30 MG/0.3 ML SYRINGE SUBCUT SCH (20:33)
[2020-11-14] MEDS: INSULIN GLARGINE 100 UNIT/ML SUBCUT SCH (20:34)
[2020-11-15] MEDS: ALBUTEROL 2.5 MG/3 ML NEB RESP TX SCH ×4 (00:13→20:10)
[2020-11-15] MEDS: INSULIN REGULAR 100 UNIT/ML SUBCUT SCH ×4 (00:55→17:45)
[2020-11-15 04:49] LABS: Basophils % 0.1 % (0.0-0.8); Eosinophils % 0.3 % (0.00-10.9); Hematocrit 32.4 VOL% (42.0-52.0); Hemoglobin 9.5 GM/DL (14.0-18.0); Immature Granulocytes % 0.7 %; Immature Granulocytes Absolute 0.06 #; Lymphocytes # 1.3 10*3/uL (1.4-4.0); Lymphocytes % 15.1 % (21.2-54.2); Mean Corpuscular HGB Conc 29.3 GM/DL (32-36); Mean Corpuscular Volume 104.2 FL (87-102); Mean Platelet Volume 10.8 FL (9.6-12.0); Monocytes % 4.3 % (1.7-12.7); Neutrophils % 79.5 % (38.7-73.9); Platelet Count 173 T/CUMM (130-400); Red Blood Count 3.11 MC/CUMM (3.8-5.5); Red Cell Distribution Width 13.5 % (9.3-17.3); White Blood Count 8.9 T/CUMM (4-12)
[2020-11-15 04:50] LABS: ABG Base Excess 4.4 MMOL/L (-2.5-2.5); ABG HCO3 28.4 MMOL/L (20-26); ABG Oxygen Saturation 98.7 % (95-100); ABG PCO2 57.3 MM HG (35-48); ABG PH 7.354 (7.35-7.45); ABG TCO2 27.6 MMOL/L (23-27)
[2020-11-15 05:08] LABS: Albumin 1.6 G/DL (3.4-5.0); Bilirubin,Total 0.4 MG/DL (0.20-1.00); Calcium 8.2 MG/DL (8.5-10.1); Osmolality,Calculated 307.6 MOS/KG (273-304); Potassium 4.2 MMOL/L (3.5-5.1); Total Protein 5.6 G/DL (6.4-8.2)
[2020-11-15] MEDS: methylPREDNISolone SOD SUC 40 MG/1 ML VIAL IV SCH ×3 (06:01→20:33)
[2020-11-15 07:06] LABS: ABG Base Excess 4.6 MMOL/L (-2.5-2.5); ABG HCO3 28.6 MMOL/L (20-26); ABG PCO2 53.3 MM HG (35-48); ABG PH 7.371 (7.35-7.45); ABG TCO2 28.3 MMOL/L (23-27)
[2020-11-15] MEDS: MINERAL OIL/PETROLATUM OPH OINT 3.5 GM TUBE BOTH EYES SCH ×3 (09:00→20:35)
[2020-11-15] MEDS ORDERED: ENOXAPARIN 40 MG/0.4 ML SYRINGE SUBCUT SCH (09:00)
[2020-11-15] MEDS: LEVOFLOXACIN INJ 750 MG/150 ML PREMIX IV SCH (09:10)
[2020-11-15] MEDS: ASPIRIN CHEW 81 MG TABLET PO SCH (09:10)
[2020-11-15] MEDS: DOCUSATE SODIUM 100 MG CAPSULE PO SCH ×2 (09:10→20:35)
[2020-11-15] MEDS: levETIRAcetam LIQUID 100 MG/ML 30 ML/BOTTLE PER TUBE SCH ×2 (09:10→20:35)
[2020-11-15] MEDS: PANTOPRAZOLE 40 MG VIAL IV SCH (09:10)
[2020-11-15 11:18] LABS: Lymphocytes,Pleural Fluid 62 %; Monocytes,Pleural Fluid 12 %; Neutrophils,Pleural Fluid 26 %
[2020-11-15 11:27] LABS: RBC,Pleural Fluid 78 T/CUMM
[2020-11-15] MEDS: FUROSEMIDE 40 MG/4 ML VIAL IV SCH (17:15)
[2020-11-15] MEDS: AZTREONAM 1,000 MG in SODIUM CHLORIDE 0.9% 100 ML IV SCH (17:25)
[2020-11-15] MEDS: INSULIN GLARGINE 100 UNIT/ML SUBCUT SCH (20:34)
[2020-11-15] MEDS: ENOXAPARIN 40 MG/0.4 ML SYRINGE SUBCUT SCH (20:34)
[2020-11-16] MEDS: ALBUTEROL 2.5 MG/3 ML NEB RESP TX SCH ×4 (00:30→19:31)
[2020-11-16] MEDS: INSULIN REGULAR 100 UNIT/ML SUBCUT SCH ×4 (00:57→19:09)
[2020-11-16] MEDS: ALPRAZolam 0.25 MG TABLET PER TUBE PRN (02:54)
[2020-11-16 04:14] LABS: ABG Base Excess 6.2 MMOL/L (-2.5-2.5); ABG HCO3 30.1 MMOL/L (20-26); ABG Oxygen Saturation 98.4 % (95-100); ABG PCO2 51.7 MM HG (35-48); ABG PH 7.402 (7.35-7.45); ABG TCO2 29.4 MMOL/L (23-27)
[2020-11-16 04:53] LABS: Basophils % 0.2 % (0.0-0.8); Eosinophils % 0.3 % (0.00-10.9); Hematocrit 30.3 VOL% (42.0-52.0); Hemoglobin 9.5 GM/DL (14.0-18.0); Immature Granulocytes % 0.5 %; Immature Granulocytes Absolute 0.05 #; Lymphocytes # 1.5 10*3/uL (1.4-4.0); Lymphocytes % 16.5 % (21.2-54.2); Mean Corpuscular HGB Conc 31.4 GM/DL (32-36); Mean Platelet Volume 10.7 FL (9.6-12.0); Monocytes % 3.1 % (1.7-12.7); Neutrophils % 79.4 % (38.7-73.9); Platelet Count 180 T/CUMM (130-400); Red Blood Count 3.03 MC/CUMM (3.8-5.5); White Blood Count 9.2 T/CUMM (4-12)
[2020-11-16 05:23] LABS: Albumin 1.7 G/DL (3.4-5.0); Bilirubin,Total 0.4 MG/DL (0.20-1.00); Osmolality,Calculated 300.8 MOS/KG (273-304); Potassium 3.9 MMOL/L (3.5-5.1); Total Protein 5.5 G/DL (6.4-8.2)
[2020-11-16] MEDS: methylPREDNISolone SOD SUC 40 MG/1 ML VIAL IV SCH ×3 (06:15→21:03)
[2020-11-16] MEDS ORDERED: MAGNESIUM SULF RIDER 4 GM/100 ML PREMIX IV ONE (08:08)
[2020-11-16] MEDS: FUROSEMIDE 40 MG/4 ML VIAL IV SCH ×2 (08:20→16:56)
[2020-11-16] MEDS: PANTOPRAZOLE 40 MG VIAL IV SCH (08:23)
[2020-11-16] MEDS: DOCUSATE SODIUM 100 MG CAPSULE PO SCH ×2 (08:24→21:04)
[2020-11-16] MEDS: levETIRAcetam LIQUID 100 MG/ML 30 ML/BOTTLE PER TUBE SCH ×2 (08:24→21:03)
[2020-11-16] MEDS: ASPIRIN CHEW 81 MG TABLET PO SCH (08:24)
[2020-11-16] MEDS: LEVOFLOXACIN INJ 750 MG/150 ML PREMIX IV SCH (08:25)
[2020-11-16] MEDS: MINERAL OIL/PETROLATUM OPH OINT 3.5 GM TUBE BOTH EYES SCH ×3 (08:26→21:04)
[2020-11-16] MEDS ORDERED: POTASSIUM CHLORIDE 20 MEQ/15 ML UDCUP PER TUBE SCH (08:30)
[2020-11-16] MEDS: POTASSIUM CHLORIDE 20 MEQ TABLET PO SCH ×3 (10:58→19:16)
[2020-11-16] MEDS: MAGNESIUM SULF RIDER 2 GM/50 ML PREMIX IV PRN (10:58)
[2020-11-16] MEDS: AZTREONAM 1,000 MG in SODIUM CHLORIDE 0.9% 100 ML IV SCH (16:55)
[2020-11-16] MEDS: ENOXAPARIN 40 MG/0.4 ML SYRINGE SUBCUT SCH (21:03)
[2020-11-16] MEDS: INSULIN GLARGINE 100 UNIT/ML SUBCUT SCH (21:05)
[2020-11-17] MEDS: ALBUTEROL 2.5 MG/3 ML NEB RESP TX SCH ×4 (00:18→19:30)
[2020-11-17] MEDS: INSULIN REGULAR 100 UNIT/ML SUBCUT SCH ×4 (00:29→17:52)
[2020-11-17 03:07] LABS: ABG Base Excess 8.8 MMOL/L (-2.5-2.5); ABG HCO3 34.7 MMOL/L (20-26); ABG Oxygen Saturation 96.6 % (95-100); ABG PH 7.418 (7.35-7.45); ABG PO2 88.6 MM HG (80-95); ABG TCO2 36.4 MMOL/L (23-27); Allen Test Positive; Pt O2 Delivery Device Other
[2020-11-17 04:23] LABS: Eosinophils % 0.2 % (0.00-10.9); Hemoglobin 9.8 GM/DL (14.0-18.0); Immature Granulocytes % 0.9 %; Lymphocytes # 1.5 10*3/uL (1.4-4.0); Lymphocytes % 13.5 % (21.2-54.2); Mean Corpuscular HGB Conc 31.6 GM/DL (32-36); Mean Corpuscular Volume 97.5 FL (87-102); Mean Platelet Volume 10.7 FL (9.6-12.0); Monocytes % 4.2 % (1.7-12.7); Neutrophils % 81.2 % (38.7-73.9); Platelet Count 212 T/CUMM (130-400); Red Blood Count 3.18 MC/CUMM (3.8-5.5); Red Cell Distribution Width 12.7 % (9.3-17.3); White Blood Count 10.7 T/CUMM (4-12)
[2020-11-17 04:36] LABS: Calcium 8.1 MG/DL (8.5-10.1); Osmolality,Calculated 297.3 MOS/KG (273-304); Potassium 4.2 MMOL/L (3.5-5.1)
[2020-11-17 04:40] LABS: Albumin 1.8 G/DL (3.4-5.0); Bilirubin,Total 0.4 MG/DL (0.20-1.00); Calcium 8.3 MG/DL (8.5-10.1); Potassium 4.1 MMOL/L (3.5-5.1); Total Protein 5.8 G/DL (6.4-8.2)
[2020-11-17 05:06] LABS: Osmolality,Calculated 293.5 MOS/KG (273-304)
[2020-11-17] MEDS: methylPREDNISolone SOD SUC 40 MG/1 ML VIAL IV SCH ×3 (05:55→20:44)
[2020-11-17] MEDS: LEVOFLOXACIN INJ 750 MG/150 ML PREMIX IV SCH (08:34)
[2020-11-17] MEDS: FUROSEMIDE 40 MG/4 ML VIAL IV SCH ×2 (08:34→16:00)
[2020-11-17] MEDS: PANTOPRAZOLE 40 MG VIAL IV SCH (08:35)
[2020-11-17 08:41] VITALS: BP 180/103
[2020-11-17] MEDS: ASPIRIN CHEW 81 MG TABLET PO SCH (09:10)
[2020-11-17] MEDS: DOCUSATE SODIUM 100 MG CAPSULE PO SCH ×2 (09:10→20:22)
[2020-11-17] MEDS: MINERAL OIL/PETROLATUM OPH OINT 3.5 GM TUBE BOTH EYES SCH ×3 (09:10→20:44)
[2020-11-17] MEDS: DORNASE ALFA 2.5 MG/2.5 ML VIAL RESP TX SCH ×2 (09:20→19:36)
[2020-11-17] MEDS: levETIRAcetam LIQUID 100 MG/ML 30 ML/BOTTLE PER TUBE SCH ×2 (12:08→20:23)
[2020-11-17] MEDS: AZTREONAM 1,000 MG in SODIUM CHLORIDE 0.9% 100 ML IV SCH (15:59)
[2020-11-17] MEDS: ENOXAPARIN 40 MG/0.4 ML SYRINGE SUBCUT SCH (20:21)
[2020-11-17] MEDS: INSULIN GLARGINE 100 UNIT/ML SUBCUT SCH (20:22)
[2020-11-18] MEDS: INSULIN REGULAR 100 UNIT/ML SUBCUT SCH ×5 (00:03→23:56)
[2020-11-18] MEDS: ALBUTEROL 2.5 MG/3 ML NEB RESP TX SCH ×4 (00:52→19:13)
[2020-11-18 03:59] LABS: Calcium 8.2 MG/DL (8.5-10.1); Osmolality,Calculated 296.1 MOS/KG (273-304); Potassium 3.9 MMOL/L (3.5-5.1)
[2020-11-18] MEDS: MAGNESIUM SULF RIDER 2 GM/50 ML PREMIX IV PRN (05:50)
[2020-11-18] MEDS: methylPREDNISolone SOD SUC 40 MG/1 ML VIAL IV SCH ×3 (05:50→21:58)
[2020-11-18] MEDS: DORNASE ALFA 2.5 MG/2.5 ML VIAL RESP TX SCH ×2 (07:30→19:18)
[2020-11-18] MEDS: PANTOPRAZOLE 40 MG VIAL IV SCH (08:17)
[2020-11-18] MEDS: FUROSEMIDE 40 MG/4 ML VIAL IV SCH ×2 (08:17→15:47)
[2020-11-18] MEDS: DOCUSATE SODIUM 100 MG CAPSULE PO SCH ×2 (08:17→21:56)
[2020-11-18] MEDS: ASPIRIN CHEW 81 MG TABLET PO SCH (08:17)
[2020-11-18] MEDS: MINERAL OIL/PETROLATUM OPH OINT 3.5 GM TUBE BOTH EYES SCH ×3 (08:30→21:59)
[2020-11-18] MEDS: levETIRAcetam LIQUID 100 MG/ML 30 ML/BOTTLE PER TUBE SCH ×2 (08:30→21:57)
[2020-11-18] MEDS: LEVOFLOXACIN INJ 750 MG/150 ML PREMIX IV SCH (09:21)
[2020-11-18] MEDS ORDERED: ALPRAZolam 0.25 MG TABLET PO PRN (18:21)
[2020-11-18] MEDS: levETIRAcetam LIQUID 100 MG/ML 30 ML/BOTTLE PO SCH (21:57)
[2020-11-18] MEDS: ENOXAPARIN 40 MG/0.4 ML SYRINGE SUBCUT SCH (21:58)
[2020-11-18] MEDS: INSULIN GLARGINE 100 UNIT/ML SUBCUT SCH (21:58)
[2020-11-19] MEDS: ALBUTEROL 2.5 MG/3 ML NEB RESP TX SCH ×3 (00:31→13:23)
[2020-11-19 04:24] LABS: Basophils % 0.1 % (0.0-0.8); Eosinophils % 0.4 % (0.00-10.9); Hematocrit 31.2 VOL% (42.0-52.0); Immature Granulocytes % 0.4 %; Immature Granulocytes Absolute 0.03 #; Lymphocytes # 0.8 10*3/uL (1.4-4.0); Lymphocytes % 11.5 % (21.2-54.2); Mean Corpuscular HGB Conc 32.1 GM/DL (32-36); Mean Corpuscular Volume 96.6 FL (87-102); Mean Platelet Volume 10.8 FL (9.6-12.0); Monocytes % 3.3 % (1.7-12.7); Neutrophils % 84.3 % (38.7-73.9); Platelet Count 180 T/CUMM (130-400); Red Blood Count 3.23 MC/CUMM (3.8-5.5); Red Cell Distribution Width 12.8 % (9.3-17.3); White Blood Count 7.3 T/CUMM (4-12)
[2020-11-19] MEDS: methylPREDNISolone SOD SUC 40 MG/1 ML VIAL IV SCH ×2 (05:45→14:35)
[2020-11-19] MEDS: INSULIN REGULAR 100 UNIT/ML SUBCUT SCH ×2 (06:32→12:45)
[2020-11-19] MEDS: DORNASE ALFA 2.5 MG/2.5 ML VIAL RESP TX SCH (07:45)
[2020-11-19] MEDS: PANTOPRAZOLE 40 MG VIAL IV SCH (09:09)
[2020-11-19] MEDS: LEVOFLOXACIN INJ 750 MG/150 ML PREMIX IV SCH (09:11)
[2020-11-19] MEDS: ASPIRIN CHEW 81 MG TABLET PO SCH (09:12)
[2020-11-19] MEDS: DOCUSATE SODIUM 100 MG CAPSULE PO SCH ×2 (09:12→10:32)
[2020-11-19] MEDS: FUROSEMIDE 40 MG/4 ML VIAL IV SCH ×2 (09:12→16:08)
[2020-11-19] MEDS: levETIRAcetam LIQUID 100 MG/ML 30 ML/BOTTLE PO SCH (09:20)
[2020-11-19] MEDS: MINERAL OIL/PETROLATUM OPH OINT 3.5 GM TUBE BOTH EYES SCH ×2 (09:20→14:32)
== END 2020-11-19 17:31 | DRG 291 ==
LOC: N.ED 17:34 → SUATTDRO 21:31 → N.EDINP 21:31 → N.TELEN 22:04 → N.ICU 11-05 01:37
PROVIDERS: ADMIT Internal Medicine Geriatric Medicine; ATTEND Hospitalist

== ENCOUNTER 2021-01-15 14:17 | Inpatient (IN) ==
[2021-01-15] MEDS ORDERED: FUROSEMIDE 100 MG/10 ML VIAL IV STA (15:46)
[2021-01-15 16:17] LABS: Bacteria,Urine Occasional /HPF (Few); Bilirubin,Urine Negative (Negative); Blood, Urine Small mg/dL (Negative); Glucose,Urine (UA) 50 mg/dL (Negative); Hyaline Casts,Urine 28 /LPF (0-3); Ketones,Urine Negative (Negative); Mucus,Urine Occasional /LPF (Occasional); Nitrite,Urine Negative (Negative); Protein,Urine >=500 MG/DL; RBC,Urine 5 /HPF (0-4); Squamous Epithelial Cell,Urine Occasional /HPF (0-10); Urine Appearance CLEAR (Clear); Urine Color Yellow (Yellow); Urine Specific Gravity 1.013 (1.001-1.035); Urine Urobilinogen < 2.0 EU/DL (0.2-1.0)
[2021-01-15 16:27] LABS: Basophils # 0.1 10*3/uL (0.0-0.2); Basophils % 1.2 % (0.0-0.8); Eosinophils # 0.1 10*3/uL (0.0-0.87); Eosinophils % 2.1 % (0.00-10.9); Hematocrit 41.2 VOL% (42.0-52.0); Hemoglobin 12.3 GM/DL (14.0-18.0); Immature Granulocytes % 0.6 %; Immature Granulocytes Absolute 0.04 #; Lymphocytes # 1.9 10*3/uL (1.4-4.0); Lymphocytes % 27.3 % (21.2-54.2); Mean Corpuscular HGB Conc 29.9 GM/DL (32-36); Mean Corpuscular Volume 101.7 FL (87-102); Mean Platelet Volume 10.4 FL (9.6-12.0); Monocytes % 8.5 % (1.7-12.7); Neutrophils % 60.3 % (38.7-73.9); Platelet Count 221 T/CUMM (130-400); Red Blood Count 4.05 MC/CUMM (3.8-5.5); Red Cell Distribution Width 15.9 % (9.3-17.3); White Blood Count 6.8 T/CUMM (4-12)
[2021-01-15 16:58] LABS: Albumin 2.2 G/DL (3.4-5.0); Bilirubin,Total 0.6 MG/DL (0.20-1.00); Calcium 8.4 MG/DL (8.5-10.1); Osmolality,Calculated 294.4 MOS/KG (273-304); Total Protein 6.8 G/DL (6.4-8.2)
[2021-01-15] MEDS ORDERED: GLUCAGON 1 MG VIAL IM PRN ×2 (18:13→18:25)
[2021-01-15] MEDS ORDERED: DEXTROSE 50% 25 GM/50 ML VIAL IV PRN ×2 (18:13→18:25)
[2021-01-15] MEDS ORDERED: MAGNESIUM SULF RIDER 4 GM/100 ML PREMIX IV PRN (18:25)
[2021-01-15] MEDS ORDERED: MAGNESIUM SULF RIDER 2 GM/50 ML PREMIX IV PRN (18:25)
[2021-01-15] MEDS: ALBUTEROL/IPRATROPIUM 3 ML NEB RESP TX SCH (20:27)
[2021-01-15] MEDS ORDERED: INSULIN GLARGINE 100 UNIT/ML SUBCUT SCH (21:00)
[2021-01-15] MEDS: INSULIN REGULAR 100 UNIT/ML SUBCUT SCH (21:28)
[2021-01-15] MEDS: ALBUMIN 25% 25 GM/100 ML VIAL IV SCH (21:28)
[2021-01-15] MEDS: levETIRAcetam 500 MG TABLET PO SCH (21:29)
[2021-01-15] MEDS: ENOXAPARIN 30 MG/0.3 ML SYRINGE SUBCUT SCH (21:29)
[2021-01-15] MEDS: FUROSEMIDE 40 MG/4 ML VIAL IV SCH (23:52)
[2021-01-16] MEDS: ALBUMIN 25% 25 GM/100 ML VIAL IV SCH ×2 (04:39→12:30)
[2021-01-16] MEDS: FUROSEMIDE 40 MG/4 ML VIAL IV SCH ×3 (05:39→20:45)
[2021-01-16 07:16] LABS: Albumin 2.9 G/DL (3.4-5.0); Bilirubin,Total 0.6 MG/DL (0.20-1.00); Calcium 8.4 MG/DL (8.5-10.1); Osmolality,Calculated 291.4 MOS/KG (273-304); Potassium 4.1 MMOL/L (3.5-5.1); Risk Ratio 4.12; Total Protein 7.5 G/DL (6.4-8.2); VLDL Cholesterol 17.4 MG/DL
[2021-01-16 07:22] LABS: Basophils # 0.1 10*3/uL (0.0-0.2); Basophils % 0.8 % (0.0-0.8); Eosinophils # 0.1 10*3/uL (0.0-0.87); Eosinophils % 1.1 % (0.00-10.9); Hematocrit 40.6 VOL% (42.0-52.0); Hemoglobin 11.5 GM/DL (14.0-18.0); Immature Granulocytes % 1.3 %; Immature Granulocytes Absolute 0.11 #; Lymphocytes # 1.9 10*3/uL (1.4-4.0); Lymphocytes % 22.9 % (21.2-54.2); Mean Corpuscular HGB Conc 28.3 GM/DL (32-36); Mean Corpuscular Volume 104.9 FL (87-102); Mean Platelet Volume 10.3 FL (9.6-12.0); Monocytes % 8.5 % (1.7-12.7); NRBC # 0.04 10*3/uL; Neutrophils % 65.4 % (38.7-73.9); Platelet Count 207 T/CUMM (130-400); Red Blood Count 3.87 MC/CUMM (3.8-5.5); Red Cell Distribution Width 16.2 % (9.3-17.3); White Blood Count 8.3 T/CUMM (4-12)
[2021-01-16 07:43] LABS: Hypochromasia Slight; Microcytosis Slight; Platelet Estimate Adequate
[2021-01-16] MEDS ORDERED: FUROSEMIDE 40 MG/4 ML VIAL IV SCH ×2 (08:00→21:00)
[2021-01-16] MEDS: INSULIN REGULAR 100 UNIT/ML SUBCUT SCH ×4 (08:22→20:34)
[2021-01-16] MEDS: levETIRAcetam 500 MG TABLET PO SCH (08:30)
[2021-01-16] MEDS ORDERED: PANTOPRAZOLE 40 MG TABLET PO SCH (09:00)
[2021-01-16] MEDS: ALBUTEROL/IPRATROPIUM 3 ML NEB RESP TX SCH ×5 (12:00→23:20)
[2021-01-16 13:24] LABS: ABG Base Excess -1.3 MMOL/L (-2.5-2.5); ABG HCO3 23.3 MMOL/L (20-26); ABG Oxygen Saturation 96.8 % (95-100); ABG PO2 99.7 MM HG (80-95); ABG TCO2 29.6 MMOL/L (23-27)
[2021-01-16 13:26] LABS: ABG PH 7.122 (7.35-7.45)
[2021-01-16 13:27] LABS: ABG PCO2 97.1 MM HG (35-48)
[2021-01-16] MEDS ORDERED: LEVOFLOXACIN INJ 500 MG/100 ML PREMIX IV SCH (13:30)
[2021-01-16] MEDS ORDERED: MEROPENEM 500 MG in SODIUM CHLORIDE 0.9% 100 ML IV SCH (13:30)
[2021-01-16] MEDS ORDERED: LINEZOLID INJ 600 MG/300 ML PREMIX IV SCH (13:30)
[2021-01-16] MEDS ORDERED: MEROPENEM 2,000 MG in SODIUM CHLORIDE 0.9% 100 ML IV SCH (13:30)
[2021-01-16] MEDS: METOPROLOL TARTRATE 25 MG TABLET PO SCH ×2 (13:38→20:38)
[2021-01-16] MEDS ORDERED: methylPREDNISolone SOD SUC 40 MG/1 ML VIAL IV SCH (14:00)
[2021-01-16 14:48] LABS: Bilirubin,Urine Negative (Negative); Blood, Urine Small mg/dL (Negative); Glucose,Urine (UA) Negative (Negative); Hyaline Casts,Urine 74 /LPF (0-3); Ketones,Urine Negative (Negative); Mucus,Urine Few /LPF (Occasional); Nitrite,Urine Negative (Negative); Protein,Urine >=500 MG/DL; RBC,Urine 9 /HPF (0-4); Squamous Epithelial Cell,Urine Occasional /HPF (0-10); Urine Appearance Slightly Hazy (Clear); Urine Color Amber (Yellow); Urine Specific Gravity 1.017 (1.001-1.035)
[2021-01-16] MEDS ORDERED: LABETALOL 20 MG/4 ML SYRINGE IV ONE (14:57)
[2021-01-16] MEDS: PANTOPRAZOLE 40 MG VIAL IV SCH (15:07)
[2021-01-16] MEDS: methylPREDNISolone SOD SUC 40 MG/1 ML VIAL IV SCH ×3 (15:07→23:00)
[2021-01-16] MEDS: VALPROIC ACID INJ 1,000 MG in SODIUM CHLORIDE 0.9% 100 ML IV SCH (15:07)
[2021-01-16 15:28] LABS: Calcium 8.4 MG/DL (8.5-10.1); Osmolality,Calculated 294.3 MOS/KG (273-304); Potassium 4.3 MMOL/L (3.5-5.1)
[2021-01-16 15:42] LABS: ABG Base Excess 1.3 MMOL/L (-2.5-2.5); ABG HCO3 31.1 MMOL/L (20-26); ABG Oxygen Saturation 95.1 % (95-100); ABG PO2 82.6 MM HG (80-95); ABG TCO2 33.6 MMOL/L (23-27)
[2021-01-16 15:44] LABS: ABG PCO2 80.4 MM HG (35-48); ABG PH 7.206 (7.35-7.45)
[2021-01-16] MEDS: ALBUMIN 25% 12.5 GM/50 ML VIAL IV SCH (18:19)
[2021-01-16] MEDS: ENOXAPARIN 30 MG/0.3 ML SYRINGE SUBCUT SCH (20:45)
[2021-01-17] MEDS: VALPROIC ACID INJ 1,000 MG in SODIUM CHLORIDE 0.9% 100 ML IV SCH (01:40)
[2021-01-17] MEDS: FUROSEMIDE 40 MG/4 ML VIAL IV SCH ×3 (03:15→19:55)
[2021-01-17] MEDS: ALBUTEROL/IPRATROPIUM 3 ML NEB RESP TX SCH ×6 (03:22→23:05)
[2021-01-17 04:34] LABS: ABG Base Excess 0.3 MMOL/L (-2.5-2.5); ABG HCO3 30.7 MMOL/L (20-26); ABG Oxygen Saturation 95.3 % (95-100); ABG PO2 85.6 MM HG (80-95); ABG TCO2 33.3 MMOL/L (23-27)
[2021-01-17 04:47] LABS: ABG PCO2 84.8 MM HG (35-48); ABG PH 7.177 (7.35-7.45)
[2021-01-17] MEDS: methylPREDNISolone SOD SUC 40 MG/1 ML VIAL IV SCH ×4 (06:04→23:31)
[2021-01-17] MEDS: ALBUMIN 25% 12.5 GM/50 ML VIAL IV SCH ×2 (06:05→19:55)
[2021-01-17] MEDS: INSULIN REGULAR 100 UNIT/ML SUBCUT SCH ×4 (07:40→19:55)
[2021-01-17 08:05] LABS: Basophils % 0.3 % (0.0-0.8); Hematocrit 39.1 VOL% (42.0-52.0); Immature Granulocytes % 4.6 %; Lymphocytes # 0.9 10*3/uL (1.4-4.0); Lymphocytes % 13.2 % (21.2-54.2); Mean Corpuscular HGB Conc 28.1 GM/DL (32-36); Mean Corpuscular Volume 107.4 FL (87-102); Mean Platelet Volume 10.3 FL (9.6-12.0); Monocytes % 1.7 % (1.7-12.7); NRBC # 0.02 10*3/uL; Neutrophils % 80.2 % (38.7-73.9); Platelet Count 153 T/CUMM (130-400); Red Blood Count 3.64 MC/CUMM (3.8-5.5); Red Cell Distribution Width 15.9 % (9.3-17.3); White Blood Count 6.6 T/CUMM (4-12)
[2021-01-17] MEDS: PANTOPRAZOLE 40 MG VIAL IV SCH (08:12)
[2021-01-17] MEDS: METOPROLOL TARTRATE 25 MG TABLET PO SCH ×2 (08:30→20:00)
[2021-01-17 08:33] LABS: Parathyroid Hormone Intact 113.9 PG/ML (18.4-80.1)
[2021-01-17 08:34] LABS: Albumin 2.8 G/DL (3.4-5.0); Bilirubin,Total 0.7 MG/DL (0.20-1.00); Calcium 8.5 MG/DL (8.5-10.1); Osmolality,Calculated 296.3 MOS/KG (273-304); Potassium 4.6 MMOL/L (3.5-5.1)
[2021-01-17 08:35] LABS: % Iron Saturation 17.1 % (18-50); Ferritin 79.5 ng/mL (26-388)
[2021-01-17 08:54] LABS: Folate 15.51 NG/ML (5.38-24.0); Vitamin B12 1781 PG/ML (211-911)
[2021-01-17 09:10] LABS: Sedimentation Rate-Westergren 40 MM/HR (0-20)
[2021-01-17 11:05] LABS: ABG Base Excess -0.2 MMOL/L (-2.5-2.5); ABG HCO3 28.4 MMOL/L (20-26); ABG Oxygen Saturation 96.9 % (95-100); ABG PCO2 66.3 MM HG (35-48); ABG PH 7.249 (7.35-7.45); ABG PO2 96.2 MM HG (80-95); ABG TCO2 30.4 MMOL/L (23-27)
[2021-01-17] MEDS ORDERED: CEFEPIME 2,000 MG in SODIUM CHLORIDE 0.9% 100 ML IV SCH (13:30)
[2021-01-17] MEDS: MEROPENEM 500 MG in SODIUM CHLORIDE 0.9% 100 ML IV SCH (14:08)
[2021-01-17] MEDS: AZITHROMYCIN INJ 500 MG in SODIUM CHLORIDE 0.9% 250 ML IV SCH (14:38)
[2021-01-17] MEDS: ENOXAPARIN 30 MG/0.3 ML SYRINGE SUBCUT SCH (20:00)
[2021-01-17] MEDS: levETIRAcetam 500 MG TABLET PO SCH (20:25)
[2021-01-18] MEDS: MEROPENEM 500 MG in SODIUM CHLORIDE 0.9% 100 ML IV SCH ×2 (02:10→14:09)
[2021-01-18] MEDS: ALBUTEROL/IPRATROPIUM 3 ML NEB RESP TX SCH ×4 (03:01→23:29)
[2021-01-18 04:30] LABS: Allen Test Positive; Pt O2 Delivery Device BIPAP
[2021-01-18 04:32] LABS: ABG Base Excess -0.7 MMOL/L (-2.5-2.5); ABG HCO3 23.8 MMOL/L (20-26); ABG Oxygen Saturation 97.8 % (95-100); ABG PCO2 63.1 MM HG (35-48); ABG PH 7.252 (7.35-7.45); ABG TCO2 25.6 MMOL/L (23-27)
[2021-01-18] MEDS: FUROSEMIDE 40 MG/4 ML VIAL IV SCH ×2 (06:00→20:50)
[2021-01-18] MEDS: ALBUMIN 25% 12.5 GM/50 ML VIAL IV SCH ×2 (06:00→18:43)
[2021-01-18] MEDS: methylPREDNISolone SOD SUC 40 MG/1 ML VIAL IV SCH ×2 (06:04→18:42)
[2021-01-18 06:35] LABS: Albumin 2.8 G/DL (3.4-5.0); Bilirubin,Total 1.3 MG/DL (0.20-1.00); Calcium 8.1 MG/DL (8.5-10.1); Ferritin 77.1 ng/mL (26-388); Osmolality,Calculated 302.3 MOS/KG (273-304); Potassium 4.5 MMOL/L (3.5-5.1); Total Protein 6.7 G/DL (6.4-8.2)
[2021-01-18 06:39] LABS: Free T4 (Free Thyroxine) 0.62 NG/DL (0.76-1.46); Thyroid Stimulating Hormone 1.86 uIU/ml (0.358-3.74)
[2021-01-18 06:57] LABS: Basophils % 0.2 % (0.0-0.8); Hematocrit 36.5 VOL% (42.0-52.0); Hemoglobin 10.6 GM/DL (14.0-18.0); Immature Granulocytes Absolute 0.06 #; Lymphocytes # 0.7 10*3/uL (1.4-4.0); Lymphocytes % 11.2 % (21.2-54.2); Mean Corpuscular Volume 103.4 FL (87-102); Mean Platelet Volume 10.8 FL (9.6-12.0); Monocytes % 5.3 % (1.7-12.7); Neutrophils % 82.3 % (38.7-73.9); Platelet Count 161 T/CUMM (130-400); Red Blood Count 3.53 MC/CUMM (3.8-5.5); Red Cell Distribution Width 16.3 % (9.3-17.3); White Blood Count 5.8 T/CUMM (4-12)
[2021-01-18] MEDS: PANTOPRAZOLE 40 MG VIAL IV SCH (08:36)
[2021-01-18] MEDS: levETIRAcetam 500 MG TABLET PO SCH ×2 (08:36→20:50)
[2021-01-18] MEDS: METOPROLOL TARTRATE 25 MG TABLET PO SCH ×2 (08:36→20:50)
[2021-01-18] MEDS: INSULIN REGULAR 100 UNIT/ML SUBCUT SCH ×4 (08:37→20:50)
[2021-01-18] MEDS: AZITHROMYCIN INJ 500 MG in SODIUM CHLORIDE 0.9% 250 ML IV SCH (12:58)
[2021-01-18 16:59] LABS: ABG Base Excess 0.2 MMOL/L (-2.5-2.5); ABG HCO3 24.6 MMOL/L (20-26); ABG PCO2 61.7 MM HG (35-48); ABG PH 7.273 (7.35-7.45)
[2021-01-18] MEDS: ENOXAPARIN 30 MG/0.3 ML SYRINGE SUBCUT SCH (20:50)
[2021-01-19] MEDS: MEROPENEM 500 MG in SODIUM CHLORIDE 0.9% 100 ML IV SCH ×2 (00:30→14:00)
[2021-01-19] MEDS: CLORAZEPATE 3.75 MG TABLET PO PRN ×2 (00:55→20:07)
[2021-01-19] MEDS: ALBUTEROL/IPRATROPIUM 3 ML NEB RESP TX SCH ×5 (03:25→19:48)
[2021-01-19 04:26] LABS: ABG Base Excess 0.5 MMOL/L (-2.5-2.5); ABG HCO3 24.8 MMOL/L (20-26); ABG Oxygen Saturation 95.1 % (95-100); ABG PCO2 68.5 MM HG (35-48); ABG PH 7.245 (7.35-7.45); ABG TCO2 27.2 MMOL/L (23-27)
[2021-01-19] MEDS: methylPREDNISolone SOD SUC 40 MG/1 ML VIAL IV SCH ×2 (05:35→17:34)
[2021-01-19] MEDS: ALBUMIN 25% 12.5 GM/50 ML VIAL IV SCH ×2 (06:00→18:11)
[2021-01-19] MEDS: FUROSEMIDE 40 MG/4 ML VIAL IV SCH ×2 (06:30→18:33)
[2021-01-19] MEDS: PANTOPRAZOLE 40 MG TABLET PO SCH (08:46)
[2021-01-19] MEDS: INSULIN REGULAR 100 UNIT/ML SUBCUT SCH ×4 (08:47→20:02)
[2021-01-19] MEDS: levETIRAcetam 500 MG TABLET PO SCH ×2 (08:47→20:04)
[2021-01-19] MEDS: METOPROLOL TARTRATE 25 MG TABLET PO SCH ×2 (08:47→20:04)
[2021-01-19 08:59] LABS: Basophils % 0.1 % (0.0-0.8); Immature Granulocytes % 1.3 %; Lymphocytes # 0.7 10*3/uL (1.4-4.0); Lymphocytes % 9.2 % (21.2-54.2); Mean Corpuscular HGB Conc 30.3 GM/DL (32-36); Mean Corpuscular Volume 103.5 FL (87-102); Mean Platelet Volume 10.4 FL (9.6-12.0); Monocytes % 3.8 % (1.7-12.7); Neutrophils % 85.6 % (38.7-73.9); Platelet Count 130 T/CUMM (130-400); Red Blood Count 3.67 MC/CUMM (3.8-5.5); Red Cell Distribution Width 16.3 % (9.3-17.3); White Blood Count 7.7 T/CUMM (4-12)
[2021-01-19 09:00] LABS: Hemoglobin 11.5 GM/DL (14.0-18.0)
[2021-01-19 09:05] LABS: Albumin 3.3 G/DL (3.4-5.0); Bilirubin,Total 0.6 MG/DL (0.20-1.00); Calcium 8.4 MG/DL (8.5-10.1); Osmolality,Calculated 308.1 MOS/KG (273-304); Potassium 4.6 MMOL/L (3.5-5.1); Total Protein 7.2 G/DL (6.4-8.2)
[2021-01-19] MEDS: AZITHROMYCIN INJ 500 MG in SODIUM CHLORIDE 0.9% 250 ML IV SCH (14:00)
[2021-01-19] MEDS: ENOXAPARIN 30 MG/0.3 ML SYRINGE SUBCUT SCH (20:02)
[2021-01-19] MEDS ORDERED: MEPERIDINE 25 MG/1 ML VIAL IV ONE (20:49)
[2021-01-19] MEDS ORDERED: MEPERIDINE 50 MG/1 ML VIAL IV PRN (21:47)
[2021-01-20] MEDS: MEROPENEM 500 MG in SODIUM CHLORIDE 0.9% 100 ML IV SCH ×2 (00:30→15:15)
[2021-01-20] MEDS: ALBUTEROL/IPRATROPIUM 3 ML NEB RESP TX SCH ×8 (01:06→23:15)
[2021-01-20 03:52] LABS: ABG Base Excess -0.9 MMOL/L (-2.5-2.5); ABG HCO3 23.6 MMOL/L (20-26); ABG Oxygen Saturation 97.1 % (95-100); ABG TCO2 27.4 MMOL/L (23-27)
[2021-01-20 04:12] LABS: ABG PCO2 77.6 MM HG (35-48); ABG PH 7.192 (7.35-7.45)
[2021-01-20 06:39] LABS: Albumin 3.2 G/DL (3.4-5.0); Bilirubin,Total 0.6 MG/DL (0.20-1.00); Calcium 8.7 MG/DL (8.5-10.1); Potassium 4.7 MMOL/L (3.5-5.1); Total Protein 7.1 G/DL (6.4-8.2)
[2021-01-20] MEDS: methylPREDNISolone SOD SUC 40 MG/1 ML VIAL IV SCH ×2 (06:52→17:42)
[2021-01-20 06:59] LABS: Hematocrit 40.2 VOL% (42.0-52.0); Immature Granulocytes % 0.7 %; Immature Granulocytes Absolute 0.05 #; Lymphocytes # 0.9 10*3/uL (1.4-4.0); Lymphocytes % 13.5 % (21.2-54.2); Mean Corpuscular HGB Conc 28.6 GM/DL (32-36); Mean Corpuscular Volume 105.5 FL (87-102); Mean Platelet Volume 10.9 FL (9.6-12.0); Monocytes % 6.1 % (1.7-12.7); NRBC # 0.02 10*3/uL; Neutrophils % 79.7 % (38.7-73.9); Platelet Count 130 T/CUMM (130-400); Red Blood Count 3.81 MC/CUMM (3.8-5.5); Red Cell Distribution Width 16.4 % (9.3-17.3); White Blood Count 6.9 T/CUMM (4-12)
[2021-01-20 07:01] LABS: Hemoglobin 11.5 GM/DL (14.0-18.0)
[2021-01-20] MEDS: INSULIN REGULAR 100 UNIT/ML SUBCUT SCH ×3 (07:37→18:34)
[2021-01-20] MEDS: PANTOPRAZOLE 40 MG TABLET PO SCH (08:03)
[2021-01-20] MEDS: ALBUMIN 25% 12.5 GM/50 ML VIAL IV SCH ×2 (08:03→18:35)
[2021-01-20] MEDS: levETIRAcetam 500 MG TABLET PO SCH ×2 (08:04→20:56)
[2021-01-20] MEDS: FUROSEMIDE 40 MG/4 ML VIAL IV SCH ×2 (08:04→19:20)
[2021-01-20] MEDS: METOPROLOL TARTRATE 25 MG TABLET PO SCH ×2 (08:04→20:56)
[2021-01-20] MEDS ORDERED: SUCCINYLCHOLINE 200 MG/10 ML VIAL ONE (08:34)
[2021-01-20] MEDS ORDERED: ETOMIDATE 20 MG/10 ML VIAL IV ONE ×2 (08:34→08:42)
[2021-01-20] MEDS ORDERED: SUCCINYLCHOLINE 200 MG/10 ML VIAL IV ONE (08:46)
[2021-01-20] MEDS ORDERED: MIDAZOLAM 2 MG/2 ML VIAL IV PRN (09:45)
[2021-01-20] MEDS ORDERED: MIDAZOLAM 100 MG in SODIUM CHLORIDE 0.9% 80 ML IV PRN (09:45)
[2021-01-20 09:54] LABS: ABG HCO3 24.5 MMOL/L (20-26); ABG PCO2 62.7 MM HG (35-48); ABG PH 7.264 (7.35-7.45); Allen Test Positive; Pt O2 Delivery Device Ventilator
[2021-01-20] MEDS: AZITHROMYCIN INJ 500 MG in SODIUM CHLORIDE 0.9% 250 ML IV SCH (15:37)
[2021-01-20] MEDS: ENOXAPARIN 30 MG/0.3 ML SYRINGE SUBCUT SCH (20:56)
[2021-01-20 21:41] LABS: Specimen Source NASAL
[2021-01-21] MEDS: MEROPENEM 500 MG in SODIUM CHLORIDE 0.9% 100 ML IV SCH ×2 (00:42→12:36)
[2021-01-21] MEDS: INSULIN REGULAR 100 UNIT/ML SUBCUT SCH ×4 (00:45→17:31)
[2021-01-21] MEDS: ALBUTEROL/IPRATROPIUM 3 ML NEB RESP TX SCH ×6 (03:07→23:07)
[2021-01-21 04:09] LABS: ABG Base Excess 4.1 MMOL/L (-2.5-2.5); ABG HCO3 27.3 MMOL/L (20-26); ABG Oxygen Saturation 97.8 % (95-100); ABG PCO2 36.2 MM HG (35-48); ABG PH 7.496 (7.35-7.45); ABG PO2 103.1 MM HG (80-95); ABG TCO2 28.5 MMOL/L (23-27)
[2021-01-21 04:55] LABS: Hematocrit 33.4 VOL% (42.0-52.0); Hemoglobin 10.2 GM/DL (14.0-18.0); Immature Granulocytes % 0.7 %; Immature Granulocytes Absolute 0.04 #; Lymphocytes # 0.9 10*3/uL (1.4-4.0); Lymphocytes % 16.7 % (21.2-54.2); Mean Corpuscular HGB Conc 30.5 GM/DL (32-36); Mean Corpuscular Volume 97.4 FL (87-102); Monocytes % 5.8 % (1.7-12.7); Neutrophils % 76.8 % (38.7-73.9); Platelet Count 122 T/CUMM (130-400); Red Blood Count 3.43 MC/CUMM (3.8-5.5); Red Cell Distribution Width 16.2 % (9.3-17.3); White Blood Count 5.3 T/CUMM (4-12)
[2021-01-21 05:07] LABS: Albumin 3.1 G/DL (3.4-5.0); Bilirubin,Total 0.8 MG/DL (0.20-1.00); Calcium 8.4 MG/DL (8.5-10.1); Osmolality,Calculated 318.8 MOS/KG (273-304); Potassium 3.6 MMOL/L (3.5-5.1); Total Protein 6.1 G/DL (6.4-8.2)
[2021-01-21] MEDS: methylPREDNISolone SOD SUC 40 MG/1 ML VIAL IV SCH ×2 (05:36→17:32)
[2021-01-21] MEDS: levETIRAcetam 500 MG TABLET PO SCH ×2 (09:57→21:30)
[2021-01-21] MEDS: ALBUMIN 25% 12.5 GM/50 ML VIAL IV SCH ×2 (09:57→21:39)
[2021-01-21] MEDS: PANTOPRAZOLE 40 MG VIAL IV SCH (09:58)
[2021-01-21] MEDS: METOPROLOL TARTRATE 25 MG TABLET PO SCH ×2 (09:58→21:30)
[2021-01-21] MEDS: FUROSEMIDE 40 MG/4 ML VIAL IV SCH ×2 (10:35→22:03)
[2021-01-21] MEDS: AZITHROMYCIN INJ 500 MG in SODIUM CHLORIDE 0.9% 250 ML IV SCH (13:30)
[2021-01-21] MEDS: ENOXAPARIN 30 MG/0.3 ML SYRINGE SUBCUT SCH (21:31)
[2021-01-22] MEDS: INSULIN REGULAR 100 UNIT/ML SUBCUT SCH ×4 (00:09→17:45)
[2021-01-22] MEDS: MEROPENEM 500 MG in SODIUM CHLORIDE 0.9% 100 ML IV SCH ×2 (01:08→13:11)
[2021-01-22] MEDS: ALBUTEROL/IPRATROPIUM 3 ML NEB RESP TX SCH ×6 (03:08→23:35)
[2021-01-22 04:21] LABS: ABG Base Excess 5.6 MMOL/L (-2.5-2.5); ABG HCO3 29.5 MMOL/L (20-26); ABG Oxygen Saturation 98.4 % (95-100); ABG PCO2 38.8 MM HG (35-48); ABG PH 7.486 (7.35-7.45); ABG TCO2 26.3 MMOL/L (23-27); Allen Test Positive; Pt O2 Delivery Device Ventilator
[2021-01-22 05:22] LABS: Eosinophils % 0.4 % (0.00-10.9); Hematocrit 35.9 VOL% (42.0-52.0); Hemoglobin 11.2 GM/DL (14.0-18.0); Immature Granulocytes % 0.5 %; Immature Granulocytes Absolute 0.03 #; Lymphocytes % 18.1 % (21.2-54.2); Mean Corpuscular HGB Conc 31.2 GM/DL (32-36); Mean Corpuscular Volume 96.8 FL (87-102); Mean Platelet Volume 11.5 FL (9.6-12.0); Monocytes % 6.7 % (1.7-12.7); Neutrophils % 74.3 % (38.7-73.9); Platelet Count 125 T/CUMM (130-400); Red Blood Count 3.71 MC/CUMM (3.8-5.5); Red Cell Distribution Width 16.5 % (9.3-17.3); White Blood Count 5.5 T/CUMM (4-12)
[2021-01-22 05:45] LABS: Albumin 3.2 G/DL (3.4-5.0); Bilirubin,Total 1.3 MG/DL (0.20-1.00); Calcium 8.5 MG/DL (8.5-10.1); Osmolality,Calculated 321.7 MOS/KG (273-304); Potassium 4.3 MMOL/L (3.5-5.1); Total Protein 6.4 G/DL (6.4-8.2)
[2021-01-22] MEDS: methylPREDNISolone SOD SUC 40 MG/1 ML VIAL IV SCH ×2 (05:59→17:45)
[2021-01-22] MEDS: ALBUMIN 25% 12.5 GM/50 ML VIAL IV SCH ×2 (09:00→21:45)
[2021-01-22] MEDS: PANTOPRAZOLE 40 MG VIAL IV SCH (09:05)
[2021-01-22] MEDS: METOPROLOL TARTRATE 25 MG TABLET PO SCH ×2 (09:17→21:46)
[2021-01-22] MEDS: FUROSEMIDE 40 MG/4 ML VIAL IV SCH ×2 (09:35→22:18)
[2021-01-22] MEDS: levETIRAcetam 500 MG TABLET PO SCH ×2 (10:41→21:46)
[2021-01-22] MEDS: ENOXAPARIN 30 MG/0.3 ML SYRINGE SUBCUT SCH (21:46)
[2021-01-23] MEDS: INSULIN REGULAR 100 UNIT/ML SUBCUT SCH ×4 (00:09→18:24)
[2021-01-23] MEDS: MEROPENEM 500 MG in SODIUM CHLORIDE 0.9% 100 ML IV SCH ×2 (01:16→13:25)
[2021-01-23] MEDS: ALBUTEROL/IPRATROPIUM 3 ML NEB RESP TX SCH ×6 (03:14→23:07)
[2021-01-23 04:08] LABS: Allen Test Positive; Pt O2 Delivery Device Ventilator
[2021-01-23 04:13] LABS: ABG HCO3 32.8 MMOL/L (20-26); ABG Oxygen Saturation 97.5 % (95-100); ABG PCO2 47.2 MM HG (35-48); ABG PO2 96.5 MM HG (80-95); ABG TCO2 34.3 MMOL/L (23-27)
[2021-01-23 05:04] LABS: Eosinophils % 0.3 % (0.00-10.9); Hematocrit 34.2 VOL% (42.0-52.0); Hemoglobin 10.4 GM/DL (14.0-18.0); Immature Granulocytes % 0.3 %; Immature Granulocytes Absolute 0.02 #; Lymphocytes # 1.3 10*3/uL (1.4-4.0); Lymphocytes % 19.5 % (21.2-54.2); Mean Corpuscular HGB Conc 30.4 GM/DL (32-36); Mean Corpuscular Volume 99.1 FL (87-102); Mean Platelet Volume 10.9 FL (9.6-12.0); Monocytes % 6.5 % (1.7-12.7); Neutrophils % 73.4 % (38.7-73.9); Platelet Count 113 T/CUMM (130-400); Red Blood Count 3.45 MC/CUMM (3.8-5.5); Red Cell Distribution Width 16.6 % (9.3-17.3); White Blood Count 6.5 T/CUMM (4-12)
[2021-01-23] MEDS: methylPREDNISolone SOD SUC 40 MG/1 ML VIAL IV SCH ×2 (05:23→18:25)
[2021-01-23 05:27] LABS: Calcium 8.8 MG/DL (8.5-10.1); Osmolality,Calculated 324.6 MOS/KG (273-304); Potassium 4.2 MMOL/L (3.5-5.1)
[2021-01-23] MEDS: levETIRAcetam 500 MG TABLET PO SCH ×2 (08:14→21:48)
[2021-01-23] MEDS: METOPROLOL TARTRATE 25 MG TABLET PO SCH ×2 (08:14→21:48)
[2021-01-23] MEDS: ALBUMIN 25% 12.5 GM/50 ML VIAL IV SCH ×2 (08:15→21:48)
[2021-01-23] MEDS: PANTOPRAZOLE 40 MG VIAL IV SCH (08:15)
[2021-01-23] MEDS: FONDAPARINUX 2.5 MG/0.5 ML SYRINGE SUBCUT SCH (08:15)
[2021-01-23] MEDS: FUROSEMIDE 40 MG/4 ML VIAL IV SCH ×2 (10:17→22:41)
[2021-01-23] MEDS: cloNIDine 0.3 MG/24 HR PATCH TRANSDERM SCH (10:47)
[2021-01-24] MEDS: INSULIN REGULAR 100 UNIT/ML SUBCUT SCH ×4 (00:25→17:55)
[2021-01-24] MEDS: MEROPENEM 500 MG in SODIUM CHLORIDE 0.9% 100 ML IV SCH ×2 (01:33→14:00)
[2021-01-24] MEDS: ALBUTEROL/IPRATROPIUM 3 ML NEB RESP TX SCH ×6 (03:20→23:05)
[2021-01-24 03:46] LABS: ABG Base Excess 9.1 MMOL/L (-2.5-2.5); ABG HCO3 33.4 MMOL/L (20-26); ABG Oxygen Saturation 95.8 % (95-100); ABG PCO2 44.6 MM HG (35-48); ABG PH 7.492 (7.35-7.45); ABG TCO2 34.7 MMOL/L (23-27)
[2021-01-24 05:27] LABS: Basophils % 0.1 % (0.0-0.8); Eosinophils % 0.3 % (0.00-10.9); Hematocrit 36.6 VOL% (42.0-52.0); Hemoglobin 10.8 GM/DL (14.0-18.0); Immature Granulocytes % 0.4 %; Immature Granulocytes Absolute 0.03 #; Lymphocytes # 1.3 10*3/uL (1.4-4.0); Lymphocytes % 17.9 % (21.2-54.2); Mean Corpuscular HGB Conc 29.5 GM/DL (32-36); Mean Corpuscular Volume 103.4 FL (87-102); Mean Platelet Volume 10.8 FL (9.6-12.0); Monocytes % 6.2 % (1.7-12.7); Neutrophils % 75.1 % (38.7-73.9); Red Blood Count 3.54 MC/CUMM (3.8-5.5); Red Cell Distribution Width 16.2 % (9.3-17.3)
[2021-01-24 05:29] LABS: Platelet Count 104 T/CUMM (130-400)
[2021-01-24 05:34] LABS: Calcium 9.2 MG/DL (8.5-10.1); Osmolality,Calculated 330.3 MOS/KG (273-304); Potassium 4.2 MMOL/L (3.5-5.1)
[2021-01-24] MEDS: methylPREDNISolone SOD SUC 40 MG/1 ML VIAL IV SCH ×2 (06:33→17:54)
[2021-01-24] MEDS: levETIRAcetam 500 MG TABLET PO SCH ×2 (10:41→20:59)
[2021-01-24] MEDS: FUROSEMIDE 40 MG/4 ML VIAL IV SCH ×2 (10:42→22:15)
[2021-01-24] MEDS: PANTOPRAZOLE 40 MG VIAL IV SCH (10:42)
[2021-01-24] MEDS: FONDAPARINUX 2.5 MG/0.5 ML SYRINGE SUBCUT SCH (10:43)
[2021-01-24] MEDS: METOPROLOL TARTRATE 25 MG TABLET PO SCH ×2 (14:37→20:58)
[2021-01-25] MEDS: INSULIN REGULAR 100 UNIT/ML SUBCUT SCH ×5 (00:09→18:50)
[2021-01-25 03:03] LABS: ABG Base Excess 10.5 MMOL/L (-2.5-2.5); ABG HCO3 34.9 MMOL/L (20-26); ABG Oxygen Saturation 97.5 % (95-100); ABG PCO2 45.8 MM HG (35-48); ABG PO2 98.1 MM HG (80-95); ABG TCO2 36.3 MMOL/L (23-27)
[2021-01-25] MEDS: MEROPENEM 500 MG in SODIUM CHLORIDE 0.9% 100 ML IV SCH ×3 (03:32→18:51)
[2021-01-25 05:21] LABS: Eosinophils # 0.1 10*3/uL (0.0-0.87); Eosinophils % 0.8 % (0.00-10.9); Hematocrit 37.5 VOL% (42.0-52.0); Hemoglobin 11.3 GM/DL (14.0-18.0); Immature Granulocytes % 0.7 %; Immature Granulocytes Absolute 0.05 #; Lymphocytes # 1.4 10*3/uL (1.4-4.0); Lymphocytes % 18.7 % (21.2-54.2); Mean Corpuscular HGB Conc 30.1 GM/DL (32-36); Mean Corpuscular Volume 99.7 FL (87-102); Mean Platelet Volume 12.1 FL (9.6-12.0); Neutrophils % 74.8 % (38.7-73.9); Platelet Count 131 T/CUMM (130-400); Red Blood Count 3.76 MC/CUMM (3.8-5.5); Red Cell Distribution Width 15.9 % (9.3-17.3); White Blood Count 7.3 T/CUMM (4-12)
[2021-01-25 05:40] LABS: Calcium 8.9 MG/DL (8.5-10.1); Osmolality,Calculated 327.1 MOS/KG (273-304); Potassium 4.2 MMOL/L (3.5-5.1)
[2021-01-25] MEDS: ALBUTEROL/IPRATROPIUM 3 ML NEB RESP TX SCH ×5 (07:24→23:55)
[2021-01-25] MEDS: methylPREDNISolone SOD SUC 40 MG/1 ML VIAL IV SCH ×2 (07:57→18:51)
[2021-01-25] MEDS: PANTOPRAZOLE 40 MG VIAL IV SCH (09:03)
[2021-01-25] MEDS: FUROSEMIDE 40 MG/4 ML VIAL IV SCH ×2 (09:03→21:03)
[2021-01-25] MEDS: FONDAPARINUX 2.5 MG/0.5 ML SYRINGE SUBCUT SCH (09:03)
[2021-01-25] MEDS: levETIRAcetam 500 MG TABLET PO SCH ×2 (09:04→21:03)
[2021-01-25] MEDS: METOPROLOL TARTRATE 25 MG TABLET PO SCH ×2 (15:40→21:03)
[2021-01-26] MEDS: INSULIN REGULAR 100 UNIT/ML SUBCUT SCH ×5 (00:53→22:24)
[2021-01-26] MEDS: MEROPENEM 500 MG in SODIUM CHLORIDE 0.9% 100 ML IV SCH ×2 (03:06→09:08)
[2021-01-26 03:56] LABS: ABG Base Excess 5.1 MMOL/L (-2.5-2.5); ABG HCO3 33.4 MMOL/L (20-26); ABG Oxygen Saturation 95.1 % (95-100); ABG PH 7.302 (7.35-7.45); ABG PO2 84.1 MM HG (80-95); ABG TCO2 35.6 MMOL/L (23-27)
[2021-01-26 03:57] LABS: ABG PCO2 69.2 MM HG (35-48)
[2021-01-26 05:43] LABS: Basophils % 0.1 % (0.0-0.8); Eosinophils % 0.3 % (0.00-10.9); Immature Granulocytes % 0.8 %; Immature Granulocytes Absolute 0.07 #; Lymphocytes # 1.5 10*3/uL (1.4-4.0); Mean Corpuscular Volume 103.4 FL (87-102); Mean Platelet Volume 11.6 FL (9.6-12.0); Monocytes % 4.7 % (1.7-12.7); Neutrophils % 77.1 % (38.7-73.9); Platelet Count 118 T/CUMM (130-400); Red Blood Count 3.87 MC/CUMM (3.8-5.5); Red Cell Distribution Width 15.7 % (9.3-17.3); White Blood Count 8.8 T/CUMM (4-12)
[2021-01-26 05:54] LABS: ABG Base Excess 6.3 MMOL/L (-2.5-2.5); ABG HCO3 30.1 MMOL/L (20-26); ABG Oxygen Saturation 94.8 % (95-100); ABG PH 7.357 (7.35-7.45); ABG TCO2 30.4 MMOL/L (23-27)
[2021-01-26] MEDS: ALBUTEROL/IPRATROPIUM 3 ML NEB RESP TX SCH ×6 (06:04→20:37)
[2021-01-26 06:17] LABS: Calcium 9.1 MG/DL (8.5-10.1); Osmolality,Calculated 313.8 MOS/KG (273-304); Potassium 4.4 MMOL/L (3.5-5.1)
[2021-01-26] MEDS: methylPREDNISolone SOD SUC 40 MG/1 ML VIAL IV SCH ×2 (06:25→17:30)
[2021-01-26] MEDS: levETIRAcetam 500 MG TABLET PO SCH ×2 (08:52→22:24)
[2021-01-26] MEDS: FONDAPARINUX 2.5 MG/0.5 ML SYRINGE SUBCUT SCH (08:52)
[2021-01-26] MEDS: METOPROLOL TARTRATE 25 MG TABLET PO SCH ×2 (08:52→22:24)
[2021-01-26] MEDS: PANTOPRAZOLE 40 MG VIAL IV SCH (08:53)
[2021-01-26] MEDS: FUROSEMIDE 40 MG/4 ML VIAL IV SCH (10:11)
[2021-01-26] MEDS: LEVOTHYROXINE 50 MCG TABLET PO SCH (13:56)
[2021-01-26] MEDS: FUROSEMIDE 40 MG TABLET PO SCH (15:33)
[2021-01-26] MEDS ORDERED: NON-FORMULARY MEDICATION (Levetiracetam [Keppra] 1,000 mg Tablet) PO SCH (21:00)
[2021-01-27] MEDS: ALBUTEROL/IPRATROPIUM 3 ML NEB RESP TX SCH ×7 (00:01→23:45)
[2021-01-27 04:38] LABS: ABG Base Excess 5.3 MMOL/L (-2.5-2.5); ABG HCO3 32.5 MMOL/L (20-26); ABG Oxygen Saturation 98.2 % (95-100); ABG PH 7.338 (7.35-7.45); ABG PO2 114.2 MM HG (80-95); ABG TCO2 34.5 MMOL/L (23-27); Allen Test Positive; Pt O2 Delivery Device BIPAP
[2021-01-27 05:21] LABS: Basophils % 0.1 % (0.0-0.8); Eosinophils # 0.1 10*3/uL (0.0-0.87); Eosinophils % 1.1 % (0.00-10.9); Hematocrit 38.4 VOL% (42.0-52.0); Immature Granulocytes % 0.7 %; Immature Granulocytes Absolute 0.06 #; Lymphocytes # 1.5 10*3/uL (1.4-4.0); Lymphocytes % 18.3 % (21.2-54.2); Mean Corpuscular HGB Conc 29.4 GM/DL (32-36); Mean Corpuscular Volume 104.3 FL (87-102); Monocytes % 5.5 % (1.7-12.7); Neutrophils % 74.3 % (38.7-73.9); Platelet Count 116 T/CUMM (130-400); Red Blood Count 3.68 MC/CUMM (3.8-5.5); White Blood Count 8.1 T/CUMM (4-12)
[2021-01-27 05:45] LABS: Hemoglobin 11.3 GM/DL (14.0-18.0)
[2021-01-27] MEDS: methylPREDNISolone SOD SUC 40 MG/1 ML VIAL IV SCH ×2 (05:50→17:57)
[2021-01-27 05:55] LABS: Calcium 8.5 MG/DL (8.5-10.1); Osmolality,Calculated 318.1 MOS/KG (273-304); Potassium 4.4 MMOL/L (3.5-5.1)
[2021-01-27] MEDS: LEVOTHYROXINE 50 MCG TABLET PO SCH (09:32)
[2021-01-27] MEDS: FUROSEMIDE 40 MG TABLET PO SCH ×2 (09:33→16:43)
[2021-01-27] MEDS: FONDAPARINUX 2.5 MG/0.5 ML SYRINGE SUBCUT SCH (09:33)
[2021-01-27] MEDS: levETIRAcetam 500 MG TABLET PO SCH ×2 (09:33→21:24)
[2021-01-27] MEDS: METOPROLOL TARTRATE 25 MG TABLET PO SCH ×2 (09:33→21:24)
[2021-01-27] MEDS: INSULIN REGULAR 100 UNIT/ML SUBCUT SCH ×4 (09:37→21:24)
[2021-01-28] MEDS: ALBUTEROL/IPRATROPIUM 3 ML NEB RESP TX SCH ×6 (03:07→23:45)
[2021-01-28] MEDS: methylPREDNISolone SOD SUC 40 MG/1 ML VIAL IV SCH ×2 (06:05→17:55)
[2021-01-28 07:06] LABS: Albumin 3.1 G/DL (3.4-5.0); Bilirubin,Total 0.7 MG/DL (0.20-1.00); Calcium 8.7 MG/DL (8.5-10.1); Osmolality,Calculated 314.7 MOS/KG (273-304); Potassium 4.4 MMOL/L (3.5-5.1); Total Protein 6.7 G/DL (6.4-8.2)
[2021-01-28 07:08] LABS: Basophils % 0.2 % (0.0-0.8); Eosinophils # 0.2 10*3/uL (0.0-0.87); Immature Granulocytes % 0.6 %; Immature Granulocytes Absolute 0.05 #; Lymphocytes # 2.1 10*3/uL (1.4-4.0); Lymphocytes % 24.4 % (21.2-54.2); Mean Corpuscular HGB Conc 29.3 GM/DL (32-36); Mean Corpuscular Volume 103.3 FL (87-102); Mean Platelet Volume 11.9 FL (9.6-12.0); Monocytes % 7.5 % (1.7-12.7); Neutrophils % 65.3 % (38.7-73.9); Platelet Count 103 T/CUMM (130-400); Red Blood Count 3.97 MC/CUMM (3.8-5.5); Red Cell Distribution Width 14.9 % (9.3-17.3); White Blood Count 8.5 T/CUMM (4-12)
[2021-01-28 07:21] LABS: ABG Base Excess 3.7 MMOL/L (-2.5-2.5); ABG HCO3 27.7 MMOL/L (20-26); ABG Oxygen Saturation 93.8 % (95-100); ABG PO2 78.1 MM HG (80-95); ABG TCO2 32.3 MMOL/L (23-27)
[2021-01-28 07:26] LABS: ABG PH 7.204 (7.35-7.45)
[2021-01-28 07:33] LABS: ABG PCO2 89.1 MM HG (35-48)
[2021-01-28 09:40] LABS: ABG HCO3 33.6 MMOL/L (20-26); ABG Oxygen Saturation 95.4 % (95-100); ABG PH 7.234 (7.35-7.45); ABG PO2 83.1 MM HG (80-95)
[2021-01-28 09:44] LABS: ABG PCO2 81.2 MM HG (35-48)
[2021-01-28] MEDS: FONDAPARINUX 2.5 MG/0.5 ML SYRINGE SUBCUT SCH (10:57)
[2021-01-28] MEDS: FUROSEMIDE 40 MG TABLET PO SCH ×2 (10:57→17:54)
[2021-01-28] MEDS: levETIRAcetam 500 MG TABLET PO SCH ×2 (10:57→21:09)
[2021-01-28] MEDS: METOPROLOL TARTRATE 25 MG TABLET PO SCH ×2 (10:58→21:09)
[2021-01-28] MEDS: LEVOTHYROXINE 50 MCG TABLET PO SCH (10:58)
[2021-01-28] MEDS: INSULIN REGULAR 100 UNIT/ML SUBCUT SCH ×4 (11:19→21:09)
[2021-01-29] MEDS: ALBUTEROL/IPRATROPIUM 3 ML NEB RESP TX SCH ×6 (03:52→19:25)
[2021-01-29 04:57] LABS: Osmolality,Calculated 310.1 MOS/KG (273-304); Potassium 4.4 MMOL/L (3.5-5.1)
[2021-01-29] MEDS: methylPREDNISolone SOD SUC 40 MG/1 ML VIAL IV SCH ×2 (05:03→17:23)
[2021-01-29 05:29] LABS: Basophils % 0.3 % (0.0-0.8); Eosinophils # 0.1 10*3/uL (0.0-0.87); Eosinophils % 1.8 % (0.00-10.9); Immature Granulocytes % 0.9 %; Immature Granulocytes Absolute 0.07 #; Lymphocytes # 1.7 10*3/uL (1.4-4.0); Mean Corpuscular HGB Conc 29.7 GM/DL (32-36); Mean Corpuscular Volume 102.4 FL (87-102); Mean Platelet Volume 12.1 FL (9.6-12.0); Monocytes % 7.9 % (1.7-12.7); Neutrophils % 67.1 % (38.7-73.9); Platelet Count 100 T/CUMM (130-400); Red Blood Count 3.81 MC/CUMM (3.8-5.5); Red Cell Distribution Width 14.7 % (9.3-17.3); White Blood Count 7.8 T/CUMM (4-12)
[2021-01-29 05:30] LABS: Hemoglobin 11.6 GM/DL (14.0-18.0)
[2021-01-29] MEDS: FUROSEMIDE 40 MG TABLET PO SCH ×2 (08:27→17:06)
[2021-01-29] MEDS: FONDAPARINUX 2.5 MG/0.5 ML SYRINGE SUBCUT SCH (08:28)
[2021-01-29] MEDS: METOPROLOL TARTRATE 25 MG TABLET PO SCH ×2 (08:28→20:33)
[2021-01-29] MEDS: LEVOTHYROXINE 50 MCG TABLET PO SCH (08:28)
[2021-01-29] MEDS: levETIRAcetam 500 MG TABLET PO SCH ×2 (08:28→20:33)
[2021-01-29] MEDS: INSULIN REGULAR 100 UNIT/ML SUBCUT SCH ×4 (08:39→20:34)
[2021-01-30 05:35] LABS: Albumin 3.1 G/DL (3.4-5.0); Bilirubin,Total 1.1 MG/DL (0.20-1.00); Calcium 8.9 MG/DL (8.5-10.1); Osmolality,Calculated 307.8 MOS/KG (273-304); Potassium 3.6 MMOL/L (3.5-5.1); Total Protein 6.9 G/DL (6.4-8.2)
[2021-01-30] MEDS: methylPREDNISolone SOD SUC 40 MG/1 ML VIAL IV SCH ×2 (05:56→18:13)
[2021-01-30 06:07] LABS: Basophils % 0.1 % (0.0-0.8); Eosinophils # 0.1 10*3/uL (0.0-0.87); Eosinophils % 0.9 % (0.00-10.9); Hematocrit 36.6 VOL% (42.0-52.0); Hemoglobin 10.9 GM/DL (14.0-18.0); Immature Granulocytes % 0.6 %; Immature Granulocytes Absolute 0.05 #; Lymphocytes # 1.7 10*3/uL (1.4-4.0); Lymphocytes % 21.7 % (21.2-54.2); Mean Corpuscular HGB Conc 29.8 GM/DL (32-36); Mean Corpuscular Volume 99.5 FL (87-102); Monocytes % 7.7 % (1.7-12.7); Platelet Count 116 T/CUMM (130-400); Red Blood Count 3.68 MC/CUMM (3.8-5.5); Red Cell Distribution Width 14.6 % (9.3-17.3); White Blood Count 7.9 T/CUMM (4-12)
[2021-01-30] MEDS: ALBUTEROL/IPRATROPIUM 3 ML NEB RESP TX SCH ×6 (07:40→23:35)
[2021-01-30] MEDS: FUROSEMIDE 40 MG TABLET PO SCH ×2 (10:17→15:52)
[2021-01-30] MEDS: METOPROLOL TARTRATE 25 MG TABLET PO SCH ×2 (10:17→20:36)
[2021-01-30] MEDS: LEVOTHYROXINE 50 MCG TABLET PO SCH (10:17)
[2021-01-30] MEDS: FONDAPARINUX 2.5 MG/0.5 ML SYRINGE SUBCUT SCH (10:17)
[2021-01-30] MEDS: levETIRAcetam 500 MG TABLET PO SCH ×2 (10:17→20:36)
[2021-01-30] MEDS: cloNIDine 0.3 MG/24 HR PATCH TRANSDERM SCH (10:45)
[2021-01-30] MEDS: INSULIN REGULAR 100 UNIT/ML SUBCUT SCH ×4 (12:23→20:36)
[2021-01-31] MEDS: ALBUTEROL/IPRATROPIUM 3 ML NEB RESP TX SCH ×5 (03:00→19:58)
[2021-01-31] MEDS: methylPREDNISolone SOD SUC 40 MG/1 ML VIAL IV SCH ×2 (05:19→17:01)
[2021-01-31 05:32] LABS: Basophils % 0.3 % (0.0-0.8); Eosinophils # 0.1 10*3/uL (0.0-0.87); Eosinophils % 1.4 % (0.00-10.9); Hematocrit 36.2 VOL% (42.0-52.0); Hemoglobin 10.8 GM/DL (14.0-18.0); Immature Granulocytes % 0.4 %; Immature Granulocytes Absolute 0.03 #; Lymphocytes # 1.8 10*3/uL (1.4-4.0); Lymphocytes % 25.7 % (21.2-54.2); Mean Corpuscular HGB Conc 29.8 GM/DL (32-36); Mean Platelet Volume 12.1 FL (9.6-12.0); Neutrophils % 65.2 % (38.7-73.9); Platelet Count 116 T/CUMM (130-400); Red Blood Count 3.55 MC/CUMM (3.8-5.5); Red Cell Distribution Width 14.3 % (9.3-17.3); White Blood Count 7.1 T/CUMM (4-12)
[2021-01-31 05:57] LABS: Osmolality,Calculated 302.8 MOS/KG (273-304); Potassium 3.5 MMOL/L (3.5-5.1)
[2021-01-31] MEDS: FONDAPARINUX 2.5 MG/0.5 ML SYRINGE SUBCUT SCH (08:35)
[2021-01-31] MEDS: levETIRAcetam 500 MG TABLET PO SCH ×2 (08:44→20:34)
[2021-01-31] MEDS: LEVOTHYROXINE 50 MCG TABLET PO SCH (08:44)
[2021-01-31] MEDS: METOPROLOL TARTRATE 25 MG TABLET PO SCH ×2 (08:45→20:34)
[2021-01-31] MEDS: FUROSEMIDE 40 MG TABLET PO SCH ×2 (08:45→16:50)
[2021-01-31] MEDS: INSULIN REGULAR 100 UNIT/ML SUBCUT SCH ×4 (09:21→20:34)
[2021-02-01] MEDS: ALBUTEROL/IPRATROPIUM 3 ML NEB RESP TX SCH ×7 (00:55→23:15)
[2021-02-01] MEDS: methylPREDNISolone SOD SUC 40 MG/1 ML VIAL IV SCH (05:23)
[2021-02-01 06:03] LABS: Basophils % 0.1 % (0.0-0.8); Eosinophils # 0.1 10*3/uL (0.0-0.87); Eosinophils % 1.6 % (0.00-10.9); Hematocrit 34.4 VOL% (42.0-52.0); Hemoglobin 10.3 GM/DL (14.0-18.0); Immature Granulocytes % 0.7 %; Immature Granulocytes Absolute 0.05 #; Lymphocytes # 2.1 10*3/uL (1.4-4.0); Lymphocytes % 30.2 % (21.2-54.2); Mean Corpuscular HGB Conc 29.9 GM/DL (32-36); Mean Platelet Volume 11.6 FL (9.6-12.0); Monocytes % 6.5 % (1.7-12.7); Neutrophils % 60.9 % (38.7-73.9); Red Blood Count 3.44 MC/CUMM (3.8-5.5); Red Cell Distribution Width 14.4 % (9.3-17.3); White Blood Count 6.8 T/CUMM (4-12)
[2021-02-01 06:12] LABS: Platelet Count 94 T/CUMM (130-400)
[2021-02-01 06:21] LABS: Calcium 8.9 MG/DL (8.5-10.1); Potassium 3.1 MMOL/L (3.5-5.1)
[2021-02-01 06:59] LABS: Anisocytosis Slight; Macrocytosis 1+; Platelet Estimate Decreased
[2021-02-01 07:00] LABS: Basophilic Stippling Slight
[2021-02-01] MEDS ORDERED: POTASSIUM CHLORIDE 20 MEQ PACK PO ONE (07:44)
[2021-02-01] MEDS: levETIRAcetam 500 MG TABLET PO SCH ×2 (09:02→21:55)
[2021-02-01] MEDS: METOPROLOL TARTRATE 25 MG TABLET PO SCH ×2 (09:02→21:55)
[2021-02-01] MEDS: LEVOTHYROXINE 50 MCG TABLET PO SCH (09:02)
[2021-02-01] MEDS: FUROSEMIDE 40 MG TABLET PO SCH ×2 (09:02→16:46)
[2021-02-01] MEDS: FONDAPARINUX 2.5 MG/0.5 ML SYRINGE SUBCUT SCH (09:03)
[2021-02-01] MEDS: INSULIN REGULAR 100 UNIT/ML SUBCUT SCH ×4 (09:03→21:54)
[2021-02-01] MEDS: predniSONE 50 MG TABLET PO SCH (09:35)
[2021-02-02] MEDS: ALBUTEROL/IPRATROPIUM 3 ML NEB RESP TX SCH ×6 (02:10→23:45)
[2021-02-02 05:03] LABS: Basophils % 0.1 % (0.0-0.8); Eosinophils # 0.1 10*3/uL (0.0-0.87); Eosinophils % 1.1 % (0.00-10.9); Hematocrit 33.8 VOL% (42.0-52.0); Hemoglobin 10.1 GM/DL (14.0-18.0); Immature Granulocytes % 0.4 %; Immature Granulocytes Absolute 0.03 #; Lymphocytes # 2.2 10*3/uL (1.4-4.0); Lymphocytes % 29.8 % (21.2-54.2); Mean Corpuscular HGB Conc 29.9 GM/DL (32-36); Mean Corpuscular Volume 99.7 FL (87-102); Mean Platelet Volume 11.1 FL (9.6-12.0); Monocytes % 7.1 % (1.7-12.7); Neutrophils % 61.5 % (38.7-73.9); Platelet Count 109 T/CUMM (130-400); Red Blood Count 3.39 MC/CUMM (3.8-5.5); Red Cell Distribution Width 14.3 % (9.3-17.3); White Blood Count 7.4 T/CUMM (4-12)
[2021-02-02 06:04] LABS: Calcium 8.9 MG/DL (8.5-10.1); Osmolality,Calculated 295.8 MOS/KG (273-304); Potassium 3.3 MMOL/L (3.5-5.1)
[2021-02-02] MEDS: INSULIN REGULAR 100 UNIT/ML SUBCUT SCH ×4 (08:38→22:29)
[2021-02-02] MEDS ORDERED: POTASSIUM CHLORIDE 20 MEQ PACK PO ONE (09:24)
[2021-02-02] MEDS: METOPROLOL TARTRATE 25 MG TABLET PO SCH ×2 (09:40→22:29)
[2021-02-02] MEDS: predniSONE 50 MG TABLET PO SCH (09:40)
[2021-02-02] MEDS: FUROSEMIDE 40 MG TABLET PO SCH ×2 (09:40→16:41)
[2021-02-02] MEDS: LEVOTHYROXINE 50 MCG TABLET PO SCH (09:40)
[2021-02-02] MEDS: FONDAPARINUX 2.5 MG/0.5 ML SYRINGE SUBCUT SCH (09:40)
[2021-02-02] MEDS: levETIRAcetam 500 MG TABLET PO SCH ×2 (09:40→22:29)
[2021-02-03] MEDS: ALBUTEROL/IPRATROPIUM 3 ML NEB RESP TX SCH ×6 (03:33→23:46)
[2021-02-03 06:37] LABS: Basophils % 0.1 % (0.0-0.8); Eosinophils # 0.1 10*3/uL (0.0-0.87); Eosinophils % 1.1 % (0.00-10.9); Hematocrit 35.6 VOL% (42.0-52.0); Hemoglobin 10.6 GM/DL (14.0-18.0); Immature Granulocytes % 0.4 %; Immature Granulocytes Absolute 0.03 #; Lymphocytes # 2.2 10*3/uL (1.4-4.0); Lymphocytes % 27.2 % (21.2-54.2); Mean Corpuscular HGB Conc 29.8 GM/DL (32-36); Mean Corpuscular Volume 100.6 FL (87-102); Mean Platelet Volume 11.6 FL (9.6-12.0); Monocytes % 5.8 % (1.7-12.7); Neutrophils % 65.4 % (38.7-73.9); Platelet Count 106 T/CUMM (130-400); Red Blood Count 3.54 MC/CUMM (3.8-5.5); Red Cell Distribution Width 14.5 % (9.3-17.3); White Blood Count 7.9 T/CUMM (4-12)
[2021-02-03 07:04] LABS: Calcium 8.9 MG/DL (8.5-10.1); Osmolality,Calculated 296.7 MOS/KG (273-304); Potassium 3.7 MMOL/L (3.5-5.1)
[2021-02-03] MEDS: levETIRAcetam 500 MG TABLET PO SCH ×2 (08:58→21:39)
[2021-02-03] MEDS: LEVOTHYROXINE 50 MCG TABLET PO SCH (08:59)
[2021-02-03] MEDS: METOPROLOL TARTRATE 25 MG TABLET PO SCH ×2 (08:59→21:39)
[2021-02-03] MEDS: FUROSEMIDE 40 MG TABLET PO SCH ×2 (08:59→16:58)
[2021-02-03] MEDS: predniSONE 50 MG TABLET PO SCH (08:59)
[2021-02-03] MEDS: FONDAPARINUX 2.5 MG/0.5 ML SYRINGE SUBCUT SCH (09:00)
[2021-02-03] MEDS: INSULIN REGULAR 100 UNIT/ML SUBCUT SCH ×4 (09:27→21:39)
[2021-02-04] MEDS: ALBUTEROL/IPRATROPIUM 3 ML NEB RESP TX SCH ×5 (03:06→20:16)
[2021-02-04] MEDS: FONDAPARINUX 2.5 MG/0.5 ML SYRINGE SUBCUT SCH (08:52)
[2021-02-04] MEDS: LEVOTHYROXINE 50 MCG TABLET PO SCH (08:53)
[2021-02-04] MEDS: FUROSEMIDE 40 MG TABLET PO SCH ×2 (08:53→15:39)
[2021-02-04] MEDS: METOPROLOL TARTRATE 25 MG TABLET PO SCH ×2 (08:53→21:22)
[2021-02-04] MEDS: levETIRAcetam 500 MG TABLET PO SCH ×2 (08:53→21:22)
[2021-02-04] MEDS ORDERED: predniSONE 20 MG TABLET PO SCH (09:00)
[2021-02-04] MEDS: INSULIN REGULAR 100 UNIT/ML SUBCUT SCH ×4 (10:01→21:23)
[2021-02-05] MEDS: ALBUTEROL/IPRATROPIUM 3 ML NEB RESP TX SCH ×2 (00:43→03:41)
[2021-02-05 04:31] VITALS: BP 127/76
== END 2021-02-05 07:53 | disposition home health service (06) | DRG 291 ==
LOC: N.ED 14:17 → SUATTDRO 18:18 → N.EDINP 18:18 → N.TELEN 21:17 → N.ICU 01-16 13:11 → N.CVR 01-20 15:29 → N.TELES 01-26 15:57
PROVIDERS: ADMIT Hospitalist; ATTEND Internal Medicine

== ENCOUNTER 2021-02-16 18:44 | Inpatient (IN) ==
[2021-02-16 19:31] LABS: Basophils % 0.6 % (0.0-0.8); Eosinophils # 0.2 10*3/uL (0.0-0.87); Eosinophils % 3.6 % (0.00-10.9); Hematocrit 37.1 VOL% (42.0-52.0); Hemoglobin 11.2 GM/DL (14.0-18.0); Immature Granulocytes % 1.4 %; Immature Granulocytes Absolute 0.07 #; Lymphocytes # 1.3 10*3/uL (1.4-4.0); Lymphocytes % 25.1 % (21.2-54.2); Mean Corpuscular HGB Conc 30.2 GM/DL (32-36); Mean Corpuscular Volume 98.9 FL (87-102); Mean Platelet Volume 11.4 FL (9.6-12.0); Monocytes % 7.3 % (1.7-12.7); Platelet Count 122 T/CUMM (130-400); Red Blood Count 3.75 MC/CUMM (3.8-5.5); Red Cell Distribution Width 16.6 % (9.3-17.3); White Blood Count 5.1 T/CUMM (4-12)
[2021-02-16] MEDS ORDERED: ALBUTEROL 2.5 MG/3 ML NEB RESP TX STA (19:47)
[2021-02-16 19:48] LABS: Albumin 2.6 G/DL (3.4-5.0); Bilirubin,Total 0.6 MG/DL (0.20-1.00); Calcium 8.6 MG/DL (8.5-10.1); Osmolality,Calculated 293.5 MOS/KG (273-304); Potassium 3.5 MMOL/L (3.5-5.1); Total Protein 5.8 G/DL (6.4-8.2)
[2021-02-16] MEDS ORDERED: LEVOFLOXACIN INJ 500 MG/100 ML PREMIX IV STA (20:01)
[2021-02-16] MEDS ORDERED: FUROSEMIDE 100 MG/10 ML VIAL IV STA (20:01)
[2021-02-16] MEDS ORDERED: FUROSEMIDE 40 MG/4 ML VIAL ONE (20:09)
[2021-02-16 20:15] LABS: ABG Base Excess 12.8 MMOL/L (-2.5-2.5); ABG HCO3 41.5 MMOL/L (20-26); ABG Oxygen Saturation 96.1 % (95-100); ABG PH 7.346 (7.35-7.45); ABG PO2 83.1 MM HG (80-95); ABG TCO2 43.9 MMOL/L (23-27)
[2021-02-16 20:17] LABS: ABG PCO2 77.6 MM HG (35-48)
[2021-02-16] MEDS ORDERED: DEXTROSE 50% 25 GM/50 ML VIAL IV PRN ×2 (20:36)
[2021-02-16] MEDS ORDERED: ACETAMINOPHEN 325 MG TABLET PO PRN (20:36)
[2021-02-16] MEDS ORDERED: MAGNESIUM SULF RIDER 2 GM/50 ML PREMIX IV PRN (20:36)
[2021-02-16] MEDS ORDERED: GLUCAGON 1 MG VIAL IM PRN ×2 (20:36)
[2021-02-16] MEDS ORDERED: MAGNESIUM SULF RIDER 4 GM/100 ML PREMIX IV PRN (20:36)
[2021-02-16] MEDS ORDERED: ONDANSETRON 4 MG/2 ML VIAL IV PRN (20:36)
[2021-02-16] MEDS: ENOXAPARIN 40 MG/0.4 ML SYRINGE SUBCUT SCH (22:32)
[2021-02-16] MEDS: METOPROLOL TARTRATE 25 MG TABLET PO SCH (22:32)
[2021-02-16] MEDS: INSULIN LISPRO 100 UNIT/ML SUBCUT SCH (22:33)
[2021-02-17] MEDS: ALBUTEROL/IPRATROPIUM 3 ML NEB RESP TX SCH ×4 (01:53→19:40)
[2021-02-17 04:26] LABS: ABG Base Excess 14.2 MMOL/L (-2.5-2.5); ABG HCO3 42.7 MMOL/L (20-26); ABG Oxygen Saturation 96.3 % (95-100); ABG PH 7.351 (7.35-7.45); ABG PO2 84.8 MM HG (80-95); ABG TCO2 45.1 MMOL/L (23-27)
[2021-02-17 04:27] LABS: Allen Test Positive; Pt O2 Delivery Device BIPAP
[2021-02-17 04:35] LABS: ABG PCO2 78.9 MM HG (35-48)
[2021-02-17] MEDS: LEVOTHYROXINE 50 MCG TABLET PO SCH (06:10)
[2021-02-17 07:02] LABS: Basophils % 0.6 % (0.0-0.8); Eosinophils # 0.2 10*3/uL (0.0-0.87); Eosinophils % 4.5 % (0.00-10.9); Hematocrit 35.4 VOL% (42.0-52.0); Hemoglobin 10.6 GM/DL (14.0-18.0); Immature Granulocytes % 0.6 %; Immature Granulocytes Absolute 0.03 #; Lymphocytes # 1.6 10*3/uL (1.4-4.0); Lymphocytes % 31.6 % (21.2-54.2); Mean Corpuscular HGB Conc 29.9 GM/DL (32-36); Mean Corpuscular Volume 99.7 FL (87-102); Mean Platelet Volume 11.3 FL (9.6-12.0); Monocytes % 9.6 % (1.7-12.7); Neutrophils % 53.1 % (38.7-73.9); Platelet Count 110 T/CUMM (130-400); Red Blood Count 3.55 MC/CUMM (3.8-5.5); Red Cell Distribution Width 16.6 % (9.3-17.3); White Blood Count 5.1 T/CUMM (4-12)
[2021-02-17 07:29] LABS: Albumin 2.3 G/DL (3.4-5.0); Bilirubin,Total 1.1 MG/DL (0.20-1.00); Calcium 8.6 MG/DL (8.5-10.1); Osmolality,Calculated 278.3 MOS/KG (273-304); Potassium 2.8 MMOL/L (3.5-5.1); Thyroid Stimulating Hormone 4.06 uIU/ml (0.358-3.74); Total Protein 5.4 G/DL (6.4-8.2)
[2021-02-17] MEDS: INSULIN LISPRO 100 UNIT/ML SUBCUT SCH ×4 (08:06→22:23)
[2021-02-17] MEDS: FUROSEMIDE 40 MG/4 ML VIAL IV SCH ×2 (08:56→16:30)
[2021-02-17] MEDS: predniSONE 10 MG TABLET PO SCH (08:56)
[2021-02-17] MEDS: levETIRAcetam 500 MG TABLET PO SCH ×2 (08:57→22:24)
[2021-02-17] MEDS: METOPROLOL TARTRATE 25 MG TABLET PO SCH ×2 (08:57→22:24)
[2021-02-17] MEDS: ASPIRIN CHEW 81 MG TABLET PO SCH (08:57)
[2021-02-17] MEDS: PANTOPRAZOLE 40 MG TABLET PO SCH (08:57)
[2021-02-17] MEDS ORDERED: amLODIPine 5 MG TABLET PO SCH (09:00)
[2021-02-17] MEDS: ENOXAPARIN 40 MG/0.4 ML SYRINGE SUBCUT SCH (22:24)
[2021-02-18] MEDS: ALBUTEROL/IPRATROPIUM 3 ML NEB RESP TX SCH ×4 (01:53→19:51)
[2021-02-18] MEDS: LEVOTHYROXINE 50 MCG TABLET PO SCH (05:40)
[2021-02-18] MEDS: METOPROLOL TARTRATE 25 MG TABLET PO SCH ×2 (09:34→20:45)
[2021-02-18] MEDS: hydrALAZINE 25 MG TABLET PO SCH ×3 (09:35→20:45)
[2021-02-18] MEDS: predniSONE 10 MG TABLET PO SCH (09:35)
[2021-02-18] MEDS: levETIRAcetam 500 MG TABLET PO SCH ×2 (09:35→21:37)
[2021-02-18] MEDS: ASPIRIN CHEW 81 MG TABLET PO SCH (09:36)
[2021-02-18] MEDS: INSULIN LISPRO 100 UNIT/ML SUBCUT SCH ×4 (09:36→20:46)
[2021-02-18] MEDS: PANTOPRAZOLE 40 MG TABLET PO SCH (09:36)
[2021-02-18] MEDS: FUROSEMIDE 40 MG/4 ML VIAL IV SCH ×2 (09:36→16:59)
[2021-02-18 11:16] LABS: Calcium 8.7 MG/DL (8.5-10.1); Osmolality,Calculated 287.4 MOS/KG (273-304); Potassium 2.9 MMOL/L (3.5-5.1)
[2021-02-18] MEDS: POTASSIUM CHLORIDE 20 MEQ TABLET PO PRN ×3 (11:35→16:58)
[2021-02-18] MEDS: glipiZIDE 5 MG TABLET PO SCH (17:18)
[2021-02-18] MEDS: POTASSIUM CHLORIDE 20 MEQ TABLET PO SCH (20:45)
[2021-02-18] MEDS: buPROPion SR 100 MG TABLET PO SCH (20:45)
[2021-02-18] MEDS: ENOXAPARIN 40 MG/0.4 ML SYRINGE SUBCUT SCH (20:46)
[2021-02-19] MEDS: ALBUTEROL/IPRATROPIUM 3 ML NEB RESP TX SCH ×4 (01:08→19:58)
[2021-02-19] MEDS: LEVOTHYROXINE 50 MCG TABLET PO SCH (05:35)
[2021-02-19 07:25] LABS: Basophils % 0.4 % (0.0-0.8); Eosinophils # 0.1 10*3/uL (0.0-0.87); Eosinophils % 0.9 % (0.00-10.9); Hematocrit 36.7 VOL% (42.0-52.0); Immature Granulocytes % 0.7 %; Immature Granulocytes Absolute 0.04 #; Lymphocytes # 1.6 10*3/uL (1.4-4.0); Lymphocytes % 29.3 % (21.2-54.2); Mean Corpuscular Volume 100.8 FL (87-102); Mean Platelet Volume 11.1 FL (9.6-12.0); Monocytes % 8.1 % (1.7-12.7); Neutrophils % 60.6 % (38.7-73.9); Platelet Count 139 T/CUMM (130-400); Red Blood Count 3.64 MC/CUMM (3.8-5.5); White Blood Count 5.4 T/CUMM (4-12)
[2021-02-19 07:43] LABS: Calcium 8.5 MG/DL (8.5-10.1); Osmolality,Calculated 289.7 MOS/KG (273-304); Potassium 4.1 MMOL/L (3.5-5.1)
[2021-02-19] MEDS: POTASSIUM CHLORIDE 20 MEQ TABLET PO SCH ×2 (09:41→21:26)
[2021-02-19] MEDS: predniSONE 10 MG TABLET PO SCH (09:42)
[2021-02-19] MEDS: ASPIRIN CHEW 81 MG TABLET PO SCH (09:42)
[2021-02-19] MEDS: levETIRAcetam 500 MG TABLET PO SCH ×2 (09:42→21:25)
[2021-02-19] MEDS: PANTOPRAZOLE 40 MG TABLET PO SCH (09:42)
[2021-02-19] MEDS: METOPROLOL TARTRATE 25 MG TABLET PO SCH ×2 (09:42→21:25)
[2021-02-19] MEDS: FUROSEMIDE 40 MG/4 ML VIAL IV SCH ×2 (09:43→16:43)
[2021-02-19] MEDS: INSULIN LISPRO 100 UNIT/ML SUBCUT SCH ×4 (09:43→21:27)
[2021-02-19] MEDS: hydrALAZINE 25 MG TABLET PO SCH ×3 (09:44→21:26)
[2021-02-19] MEDS: NICOTINE 21 MG/24 HR PATCH TRANSDERM SCH (09:46)
[2021-02-19] MEDS: glipiZIDE 5 MG TABLET PO SCH ×2 (10:50→17:08)
[2021-02-19] MEDS: buPROPion SR 100 MG TABLET PO SCH ×2 (10:50→21:25)
[2021-02-19] MEDS: ENOXAPARIN 40 MG/0.4 ML SYRINGE SUBCUT SCH (21:27)
[2021-02-20] MEDS: ALBUTEROL/IPRATROPIUM 3 ML NEB RESP TX SCH ×4 (00:44→19:15)
[2021-02-20] MEDS: LEVOTHYROXINE 50 MCG TABLET PO SCH (05:41)
[2021-02-20 06:00] LABS: Basophils % 0.2 % (0.0-0.8); Eosinophils # 0.1 10*3/uL (0.0-0.87); Eosinophils % 1.3 % (0.00-10.9); Hematocrit 37.6 VOL% (42.0-52.0); Hemoglobin 11.2 GM/DL (14.0-18.0); Immature Granulocytes % 1.5 %; Immature Granulocytes Absolute 0.07 #; Lymphocytes # 1.2 10*3/uL (1.4-4.0); Lymphocytes % 25.1 % (21.2-54.2); Mean Corpuscular HGB Conc 29.8 GM/DL (32-36); Mean Corpuscular Volume 102.7 FL (87-102); Monocytes % 8.1 % (1.7-12.7); Neutrophils % 63.8 % (38.7-73.9); Platelet Count 122 T/CUMM (130-400); Red Blood Count 3.66 MC/CUMM (3.8-5.5); White Blood Count 4.7 T/CUMM (4-12)
[2021-02-20 06:11] LABS: Calcium 8.9 MG/DL (8.5-10.1); Osmolality,Calculated 298.4 MOS/KG (273-304); Potassium 4.6 MMOL/L (3.5-5.1)
[2021-02-20] MEDS: FUROSEMIDE 40 MG/4 ML VIAL IV SCH ×2 (09:18→16:33)
[2021-02-20] MEDS: INSULIN LISPRO 100 UNIT/ML SUBCUT SCH ×4 (09:18→22:15)
[2021-02-20] MEDS: buPROPion SR 100 MG TABLET PO SCH ×2 (09:19→22:11)
[2021-02-20] MEDS: levETIRAcetam 500 MG TABLET PO SCH ×2 (09:19→22:12)
[2021-02-20] MEDS: NICOTINE 21 MG/24 HR PATCH TRANSDERM SCH (09:19)
[2021-02-20] MEDS: predniSONE 10 MG TABLET PO SCH (09:20)
[2021-02-20] MEDS: ASPIRIN CHEW 81 MG TABLET PO SCH (09:20)
[2021-02-20] MEDS: PANTOPRAZOLE 40 MG TABLET PO SCH (09:20)
[2021-02-20] MEDS: METOPROLOL TARTRATE 25 MG TABLET PO SCH ×2 (09:20→22:13)
[2021-02-20] MEDS: POTASSIUM CHLORIDE 20 MEQ TABLET PO SCH ×2 (09:20→22:11)
[2021-02-20] MEDS: hydrALAZINE 25 MG TABLET PO SCH ×3 (09:21→22:11)
[2021-02-20] MEDS: glipiZIDE 5 MG TABLET PO SCH ×2 (09:22→15:35)
[2021-02-20] MEDS: sitaGLIPtin 25 MG TABLET PO SCH (09:23)
[2021-02-20] MEDS: ENOXAPARIN 40 MG/0.4 ML SYRINGE SUBCUT SCH (22:13)
[2021-02-20] MEDS: INSULIN GLARGINE 100 UNIT/ML SUBCUT SCH (22:14)
[2021-02-21] MEDS: ALBUTEROL/IPRATROPIUM 3 ML NEB RESP TX SCH ×4 (01:29→20:11)
[2021-02-21 05:23] LABS: Osmolality,Calculated 296.4 MOS/KG (273-304); Potassium 5.7 MMOL/L (3.5-5.1)
[2021-02-21 05:36] LABS: Basophils % 0.5 % (0.0-0.8); Eosinophils # 0.1 10*3/uL (0.0-0.87); Eosinophils % 0.8 % (0.00-10.9); Immature Granulocytes % 0.3 %; Immature Granulocytes Absolute 0.02 #; Lymphocytes # 2.3 10*3/uL (1.4-4.0); Lymphocytes % 34.6 % (21.2-54.2); Mean Corpuscular HGB Conc 28.8 GM/DL (32-36); Mean Corpuscular Volume 104.3 FL (87-102); Mean Platelet Volume 11.1 FL (9.6-12.0); Monocytes % 7.1 % (1.7-12.7); Neutrophils % 56.7 % (38.7-73.9); Platelet Count 141 T/CUMM (130-400); Red Blood Count 3.93 MC/CUMM (3.8-5.5); White Blood Count 6.6 T/CUMM (4-12)
[2021-02-21 05:38] LABS: Hemoglobin 11.8 GM/DL (14.0-18.0)
[2021-02-21] MEDS: LEVOTHYROXINE 50 MCG TABLET PO SCH (06:19)
[2021-02-21] MEDS: hydrALAZINE 25 MG TABLET PO SCH ×3 (09:26→21:40)
[2021-02-21] MEDS: FUROSEMIDE 40 MG/4 ML VIAL IV SCH (09:26)
[2021-02-21] MEDS: sitaGLIPtin 25 MG TABLET PO SCH (09:26)
[2021-02-21] MEDS: METOPROLOL TARTRATE 25 MG TABLET PO SCH ×2 (09:27→21:39)
[2021-02-21] MEDS: NICOTINE 21 MG/24 HR PATCH TRANSDERM SCH (09:36)
[2021-02-21] MEDS: INSULIN LISPRO 100 UNIT/ML SUBCUT SCH ×4 (09:36→21:40)
[2021-02-21] MEDS: buPROPion SR 100 MG TABLET PO SCH ×2 (09:37→21:39)
[2021-02-21] MEDS: predniSONE 10 MG TABLET PO SCH (09:37)
[2021-02-21] MEDS: ASPIRIN CHEW 81 MG TABLET PO SCH (09:37)
[2021-02-21] MEDS: levETIRAcetam 500 MG TABLET PO SCH ×2 (09:37→21:38)
[2021-02-21] MEDS: PANTOPRAZOLE 40 MG TABLET PO SCH (09:37)
[2021-02-21] MEDS: POTASSIUM CHLORIDE 20 MEQ TABLET PO SCH (09:37)
[2021-02-21] MEDS ORDERED: SODIUM POLYSTYRENE SULFATE 15 GM/60 ML BOTTLE PO STA (12:07)
[2021-02-21] MEDS: INSULIN GLARGINE 100 UNIT/ML SUBCUT SCH (21:39)
[2021-02-21] MEDS: ENOXAPARIN 40 MG/0.4 ML SYRINGE SUBCUT SCH (21:40)
[2021-02-22] MEDS: ALBUTEROL/IPRATROPIUM 3 ML NEB RESP TX SCH ×4 (01:13→20:47)
[2021-02-22] MEDS: LEVOTHYROXINE 50 MCG TABLET PO SCH (05:32)
[2021-02-22 06:35] LABS: Calcium 8.8 MG/DL (8.5-10.1); Osmolality,Calculated 292.3 MOS/KG (273-304); Potassium 5.2 MMOL/L (3.5-5.1)
[2021-02-22 06:37] LABS: Calcium 8.8 MG/DL (8.5-10.1); Osmolality,Calculated 294.1 MOS/KG (273-304); Potassium 5.3 MMOL/L (3.5-5.1)
[2021-02-22 06:54] LABS: Basophils # 0.1 10*3/uL (0.0-0.2); Basophils % 0.9 % (0.0-0.8); Eosinophils # 0.1 10*3/uL (0.0-0.87); Eosinophils % 2.1 % (0.00-10.9); Hematocrit 38.3 VOL% (42.0-52.0); Hemoglobin 11.3 GM/DL (14.0-18.0); Immature Granulocytes % 0.3 %; Immature Granulocytes Absolute 0.02 #; Lymphocytes # 2.2 10*3/uL (1.4-4.0); Lymphocytes % 33.6 % (21.2-54.2); Mean Corpuscular HGB Conc 29.5 GM/DL (32-36); Mean Corpuscular Volume 102.7 FL (87-102); Monocytes % 9.5 % (1.7-12.7); Neutrophils % 53.6 % (38.7-73.9); Red Blood Count 3.73 MC/CUMM (3.8-5.5); Red Cell Distribution Width 17.2 % (9.3-17.3); White Blood Count 6.6 T/CUMM (4-12)
[2021-02-22 06:56] LABS: Platelet Count 174 T/CUMM (130-400)
[2021-02-22] MEDS ORDERED: SODIUM POLYSTYRENE SULFATE 15 GM/60 ML BOTTLE PO STA (08:48)
[2021-02-22] MEDS: INSULIN LISPRO 100 UNIT/ML SUBCUT SCH ×4 (09:01→20:59)
[2021-02-22] MEDS: levETIRAcetam 500 MG TABLET PO SCH ×2 (09:17→20:57)
[2021-02-22] MEDS: METOPROLOL TARTRATE 25 MG TABLET PO SCH ×2 (09:17→20:58)
[2021-02-22] MEDS: ASPIRIN CHEW 81 MG TABLET PO SCH (09:17)
[2021-02-22] MEDS: buPROPion SR 100 MG TABLET PO SCH ×2 (09:17→20:58)
[2021-02-22] MEDS: PANTOPRAZOLE 40 MG TABLET PO SCH (09:17)
[2021-02-22] MEDS: hydrALAZINE 25 MG TABLET PO SCH ×3 (09:17→20:58)
[2021-02-22] MEDS: predniSONE 10 MG TABLET PO SCH (09:17)
[2021-02-22] MEDS: sitaGLIPtin 25 MG TABLET PO SCH (09:18)
[2021-02-22] MEDS: NICOTINE 21 MG/24 HR PATCH TRANSDERM SCH (09:18)
[2021-02-22] MEDS: ALBUMIN 25% 12.5 GM/50 ML VIAL IV SCH (15:49)
[2021-02-22] MEDS: INSULIN GLARGINE 100 UNIT/ML SUBCUT SCH (20:58)
[2021-02-22] MEDS ORDERED: ENOXAPARIN 30 MG/0.3 ML SYRINGE SUBCUT SCH (21:00)
[2021-02-23] MEDS: ALBUTEROL/IPRATROPIUM 3 ML NEB RESP TX SCH ×4 (00:33→20:01)
[2021-02-23] MEDS: ALBUMIN 25% 12.5 GM/50 ML VIAL IV SCH ×2 (03:08→14:44)
[2021-02-23] MEDS: LEVOTHYROXINE 50 MCG TABLET PO SCH (06:02)
[2021-02-23 06:42] LABS: Calcium 8.6 MG/DL (8.5-10.1); Osmolality,Calculated 298.5 MOS/KG (273-304); Osmolality,Calculated 299.5 MOS/KG (273-304); Potassium 5.1 MMOL/L (3.5-5.1); Potassium 5.3 MMOL/L (3.5-5.1)
[2021-02-23 06:43] LABS: Basophils # 0.1 10*3/uL (0.0-0.2); Basophils % 0.9 % (0.0-0.8); Eosinophils # 0.1 10*3/uL (0.0-0.87); Eosinophils % 2.1 % (0.00-10.9); Hematocrit 39.9 VOL% (42.0-52.0); Immature Granulocytes % 0.4 %; Immature Granulocytes Absolute 0.03 #; Lymphocytes # 1.9 10*3/uL (1.4-4.0); Mean Corpuscular HGB Conc 28.8 GM/DL (32-36); Mean Corpuscular Volume 104.2 FL (87-102); Mean Platelet Volume 11.4 FL (9.6-12.0); Monocytes % 9.6 % (1.7-12.7); Platelet Count 187 T/CUMM (130-400); Red Blood Count 3.83 MC/CUMM (3.8-5.5); Red Cell Distribution Width 17.2 % (9.3-17.3); White Blood Count 6.7 T/CUMM (4-12)
[2021-02-23 06:45] LABS: Hemoglobin 11.5 GM/DL (14.0-18.0)
[2021-02-23] MEDS: levETIRAcetam 500 MG TABLET PO SCH ×2 (09:56→20:39)
[2021-02-23] MEDS: ASPIRIN CHEW 81 MG TABLET PO SCH (09:56)
[2021-02-23] MEDS: hydrALAZINE 25 MG TABLET PO SCH ×3 (09:56→20:39)
[2021-02-23] MEDS: NICOTINE 21 MG/24 HR PATCH TRANSDERM SCH (09:56)
[2021-02-23] MEDS: METOPROLOL TARTRATE 25 MG TABLET PO SCH ×2 (09:56→20:39)
[2021-02-23] MEDS: INSULIN LISPRO 100 UNIT/ML SUBCUT SCH ×3 (09:57→18:33)
[2021-02-23 10:29] LABS: Alanine Aminotransferase 26 U/L (16-61); Albumin 3.1 G/DL (3.4-5.0); Alkaline Phosphatase 195 U/L (45-117); Aspartate Amino Transferase 20 U/L (0-37); Blood Urea Nitrogen 59 MG/DL (7-18); Calcium 8.7 MG/DL (8.5-10.1); Carbon Dioxide 35 MMOL/L (21-32); Estimated Glom Filtration Rate 18 ML/MIN; Glucose 216 MG/DL (74-106); Osmolality,Calculated 300.5 MOS/KG (273-304); Potassium 5.4 MMOL/L (3.5-5.1); Sodium 139 MMOL/L (136-145); Total Protein 6.8 G/DL (6.4-8.2)
[2021-02-23 10:33] LABS: Basophils # 0.1 10*3/uL (0.0-0.2); Basophils % 0.8 % (0.0-0.8); Eosinophils # 0.1 10*3/uL (0.0-0.87); Hematocrit 38.9 VOL% (42.0-52.0); Immature Granulocytes % 0.5 %; Immature Granulocytes Absolute 0.03 #; Lymphocytes # 1.6 10*3/uL (1.4-4.0); Lymphocytes % 24.9 % (21.2-54.2); Mean Corpuscular HGB Conc 28.5 GM/DL (32-36); Mean Corpuscular Volume 104.6 FL (87-102); Mean Platelet Volume 11.3 FL (9.6-12.0); Monocytes % 8.6 % (1.7-12.7); Neutrophils % 63.2 % (38.7-73.9); Platelet Count 207 T/CUMM (130-400); Red Blood Count 3.72 MC/CUMM (3.8-5.5); White Blood Count 6.4 T/CUMM (4-12)
[2021-02-23 10:35] LABS: Hemoglobin 11.1 GM/DL (14.0-18.0)
[2021-02-23] MEDS: PANTOPRAZOLE 40 MG TABLET PO SCH (11:20)
[2021-02-23] MEDS: buPROPion SR 100 MG TABLET PO SCH ×2 (11:20→20:39)
[2021-02-23] MEDS ORDERED: SODIUM POLYSTYRENE SULFATE 15 GM/60 ML BOTTLE PO STA (11:30)
[2021-02-23 11:58] LABS: ABG HCO3 26.9 MMOL/L (20-26); ABG Oxygen Saturation 87.7 % (95-100); ABG PO2 66.3 MM HG (80-95)
[2021-02-23 11:59] LABS: ABG PCO2 97.6 MM HG (35-48); ABG PH 7.168 (7.35-7.45)
[2021-02-23 14:30] LABS: Bacteria,Urine Occasional /HPF (Few); Bilirubin,Urine Negative (Negative); Blood, Urine Negative (Negative); Glucose,Urine (UA) 50 mg/dL (Negative); Hyaline Casts,Urine 25 /LPF (0-3); Ketones,Urine Negative (Negative); Mucus,Urine Occasional /LPF (Occasional); Nitrite,Urine Negative (Negative); Protein,Urine >=500 MG/DL; RBC,Urine 9 /HPF (0-4); Sperm,Urine Occasional /HPF (Negative); Squamous Epithelial Cell,Urine Occasional /HPF (0-10); Urine Appearance Slightly Hazy (Clear); Urine Color Amber (Yellow); Urine Specific Gravity 1.019 (1.001-1.035); Urine Urobilinogen < 2.0 EU/DL (0.2-1.0)
[2021-02-23 14:42] LABS: ABG Base Excess 2.9 MMOL/L (-2.5-2.5); ABG Oxygen Saturation 97.3 % (95-100); ABG PH 7.248 (7.35-7.45); ABG PO2 106.3 MM HG (80-95); ABG TCO2 34.4 MMOL/L (23-27); Allen Test Positive; Pt O2 Delivery Device Ventilator
[2021-02-23 14:49] LABS: ABG PCO2 75.1 MM HG (35-48)
[2021-02-23 14:51] LABS: Basophils % 0.5 % (0.0-0.8); Eosinophils # 0.2 10*3/uL (0.0-0.87); Eosinophils % 2.3 % (0.00-10.9); Hematocrit 38.6 VOL% (42.0-52.0); Hemoglobin 10.9 GM/DL (14.0-18.0); Immature Granulocytes % 0.9 %; Immature Granulocytes Absolute 0.07 #; Lymphocytes # 1.9 10*3/uL (1.4-4.0); Lymphocytes % 25.7 % (21.2-54.2); Mean Corpuscular HGB Conc 28.2 GM/DL (32-36); Mean Corpuscular Volume 105.8 FL (87-102); Mean Platelet Volume 11.1 FL (9.6-12.0); Monocytes % 6.6 % (1.7-12.7); Platelet Count 198 T/CUMM (130-400); Red Blood Count 3.65 MC/CUMM (3.8-5.5); Red Cell Distribution Width 17.1 % (9.3-17.3); White Blood Count 7.6 T/CUMM (4-12)
[2021-02-23 15:21] LABS: Alanine Aminotransferase 24 U/L (16-61); Albumin 2.8 G/DL (3.4-5.0); Alkaline Phosphatase 188 U/L (45-117); Aspartate Amino Transferase 18 U/L (0-37); Bilirubin,Total < 0.39 MG/DL (0.20-1.00); Blood Urea Nitrogen 60 MG/DL (7-18); Calcium 9.5 MG/DL (8.5-10.1); Carbon Dioxide 32 MMOL/L (21-32); Estimated Glom Filtration Rate 17 ML/MIN; Glucose 174 MG/DL (74-106); Osmolality,Calculated 301.3 MOS/KG (273-304); Sodium 141 MMOL/L (136-145); Total Protein 6.2 G/DL (6.4-8.2)
[2021-02-23] MEDS: INSULIN GLARGINE 100 UNIT/ML SUBCUT SCH (20:40)
[2021-02-23] MEDS: HEPARIN 5,000 UNIT/1 ML VIAL SUBCUT SCH (20:41)
[2021-02-24] MEDS: ALBUTEROL/IPRATROPIUM 3 ML NEB RESP TX SCH ×4 (00:45→19:22)
[2021-02-24] MEDS: INSULIN LISPRO 100 UNIT/ML SUBCUT SCH ×4 (01:37→17:05)
[2021-02-24 03:01] LABS: Basophils % 0.3 % (0.0-0.8); Eosinophils # 0.1 10*3/uL (0.0-0.87); Hematocrit 32.2 VOL% (42.0-52.0); Hemoglobin 9.8 GM/DL (14.0-18.0); Immature Granulocytes % 0.5 %; Immature Granulocytes Absolute 0.03 #; Lymphocytes # 1.6 10*3/uL (1.4-4.0); Lymphocytes % 27.6 % (21.2-54.2); Mean Corpuscular HGB Conc 30.4 GM/DL (32-36); Mean Corpuscular Volume 98.5 FL (87-102); Mean Platelet Volume 11.1 FL (9.6-12.0); Monocytes % 6.5 % (1.7-12.7); Neutrophils % 63.1 % (38.7-73.9); Platelet Count 167 T/CUMM (130-400); Red Blood Count 3.27 MC/CUMM (3.8-5.5); Red Cell Distribution Width 17.2 % (9.3-17.3); White Blood Count 5.9 T/CUMM (4-12)
[2021-02-24 03:25] LABS: Calcium 8.7 MG/DL (8.5-10.1); Calcium 8.9 MG/DL (8.5-10.1); Osmolality,Calculated 296.5 MOS/KG (273-304); Osmolality,Calculated 302.1 MOS/KG (273-304); Potassium 4.2 MMOL/L (3.5-5.1); Potassium 4.4 MMOL/L (3.5-5.1)
[2021-02-24] MEDS: ALBUMIN 25% 12.5 GM/50 ML VIAL IV SCH ×2 (03:55→15:27)
[2021-02-24 04:01] LABS: ABG Base Excess 10.6 MMOL/L (-2.5-2.5); ABG HCO3 34.4 MMOL/L (20-26); ABG PCO2 36.3 MM HG (35-48); ABG PH 7.572 (7.35-7.45); ABG TCO2 30.2 MMOL/L (23-27)
[2021-02-24] MEDS: hydrALAZINE 25 MG TABLET PO SCH (08:02)
[2021-02-24] MEDS: NICOTINE 21 MG/24 HR PATCH TRANSDERM SCH (08:06)
[2021-02-24] MEDS: buPROPion SR 100 MG TABLET PO SCH ×2 (08:07→20:31)
[2021-02-24] MEDS: ASPIRIN CHEW 81 MG TABLET PO SCH (08:07)
[2021-02-24] MEDS: LEVOTHYROXINE 50 MCG TABLET PO SCH (08:07)
[2021-02-24] MEDS: levETIRAcetam 500 MG TABLET PO SCH ×2 (08:07→20:31)
[2021-02-24] MEDS: HEPARIN 5,000 UNIT/1 ML VIAL SUBCUT SCH ×2 (08:07→20:34)
[2021-02-24] MEDS ORDERED: METOPROLOL TARTRATE 25 MG TABLET PO SCH (09:00)
[2021-02-24] MEDS: INSULIN GLARGINE 100 UNIT/ML SUBCUT SCH (20:33)
[2021-02-25] MEDS: INSULIN LISPRO 100 UNIT/ML SUBCUT SCH ×5 (00:08→23:38)
[2021-02-25 03:36] LABS: ABG Base Excess 8.6 MMOL/L (-2.5-2.5); ABG HCO3 32.4 MMOL/L (20-26); ABG Oxygen Saturation 98.3 % (95-100); ABG PCO2 47.2 MM HG (35-48); ABG PH 7.461 (7.35-7.45); ABG TCO2 30.3 MMOL/L (23-27)
[2021-02-25] MEDS: ALBUMIN 25% 12.5 GM/50 ML VIAL IV SCH (04:15)
[2021-02-25 04:47] LABS: Basophils % 0.5 % (0.0-0.8); Eosinophils # 0.2 10*3/uL (0.0-0.87); Eosinophils % 2.9 % (0.00-10.9); Hematocrit 33.1 VOL% (42.0-52.0); Hemoglobin 10.2 GM/DL (14.0-18.0); Immature Granulocytes % 0.7 %; Immature Granulocytes Absolute 0.04 #; Lymphocytes # 1.4 10*3/uL (1.4-4.0); Lymphocytes % 24.2 % (21.2-54.2); Mean Corpuscular HGB Conc 30.8 GM/DL (32-36); Mean Corpuscular Volume 97.9 FL (87-102); Mean Platelet Volume 11.6 FL (9.6-12.0); Monocytes % 6.4 % (1.7-12.7); Neutrophils % 65.3 % (38.7-73.9); Platelet Count 174 T/CUMM (130-400); Red Blood Count 3.38 MC/CUMM (3.8-5.5); Red Cell Distribution Width 18.3 % (9.3-17.3); White Blood Count 5.6 T/CUMM (4-12)
[2021-02-25 05:03] LABS: Calcium 8.9 MG/DL (8.5-10.1); Osmolality,Calculated 294.7 MOS/KG (273-304); Potassium 4.2 MMOL/L (3.5-5.1)
[2021-02-25 05:07] LABS: Albumin 2.7 G/DL (3.4-5.0); Bilirubin,Direct 0.31 MG/DL (0.0-0.20); Bilirubin,Indirect 0.8 MG/DL (0.0-1.0); Bilirubin,Total 1.1 MG/DL (0.20-1.00); Total Protein 5.2 G/DL (6.4-8.2)
[2021-02-25] MEDS: LEVOTHYROXINE 50 MCG TABLET PO SCH (06:52)
[2021-02-25] MEDS: ALBUTEROL/IPRATROPIUM 3 ML NEB RESP TX SCH ×3 (07:59→21:32)
[2021-02-25] MEDS: buPROPion SR 100 MG TABLET PO SCH ×2 (10:30→20:10)
[2021-02-25] MEDS: NICOTINE 21 MG/24 HR PATCH TRANSDERM SCH (10:31)
[2021-02-25] MEDS: ASPIRIN CHEW 81 MG TABLET PO SCH (10:31)
[2021-02-25] MEDS: levETIRAcetam 500 MG TABLET PO SCH ×2 (10:31→20:50)
[2021-02-25] MEDS: PANTOPRAZOLE 40 MG VIAL IV SCH (10:32)
[2021-02-25] MEDS: HEPARIN 5,000 UNIT/1 ML VIAL SUBCUT SCH ×2 (10:33→20:51)
[2021-02-25] MEDS: INSULIN GLARGINE 100 UNIT/ML SUBCUT SCH (20:50)
[2021-02-26 03:45] LABS: ABG Base Excess 9.6 MMOL/L (-2.5-2.5); ABG HCO3 33.3 MMOL/L (20-26); ABG Oxygen Saturation 99.2 % (95-100); ABG PCO2 48.8 MM HG (35-48); ABG PH 7.461 (7.35-7.45); ABG TCO2 31.7 MMOL/L (23-27)
[2021-02-26 03:57] LABS: Basophils % 0.6 % (0.0-0.8); Eosinophils # 0.1 10*3/uL (0.0-0.87); Eosinophils % 2.3 % (0.00-10.9); Hematocrit 31.8 VOL% (42.0-52.0); Hemoglobin 9.8 GM/DL (14.0-18.0); Immature Granulocytes % 0.6 %; Immature Granulocytes Absolute 0.03 #; Lymphocytes # 1.5 10*3/uL (1.4-4.0); Lymphocytes % 28.1 % (21.2-54.2); Mean Corpuscular HGB Conc 30.8 GM/DL (32-36); Mean Corpuscular Volume 99.1 FL (87-102); Mean Platelet Volume 11.3 FL (9.6-12.0); Monocytes % 7.7 % (1.7-12.7); Neutrophils % 60.7 % (38.7-73.9); Platelet Count 172 T/CUMM (130-400); Red Blood Count 3.21 MC/CUMM (3.8-5.5); White Blood Count 5.2 T/CUMM (4-12)
[2021-02-26 04:14] LABS: Calcium 8.8 MG/DL (8.5-10.1); Osmolality,Calculated 294.4 MOS/KG (273-304); Potassium 3.9 MMOL/L (3.5-5.1)
[2021-02-26] MEDS: INSULIN LISPRO 100 UNIT/ML SUBCUT SCH ×3 (05:46→19:23)
[2021-02-26] MEDS: LEVOTHYROXINE 50 MCG TABLET PO SCH (06:10)
[2021-02-26] MEDS: ALBUTEROL/IPRATROPIUM 3 ML NEB RESP TX SCH ×4 (07:47→20:24)
[2021-02-26] MEDS: buPROPion SR 100 MG TABLET PO SCH ×2 (09:25→20:17)
[2021-02-26] MEDS: levETIRAcetam 500 MG TABLET PO SCH ×2 (09:25→20:31)
[2021-02-26] MEDS: NICOTINE 21 MG/24 HR PATCH TRANSDERM SCH (09:25)
[2021-02-26] MEDS: ASPIRIN CHEW 81 MG TABLET PO SCH (09:25)
[2021-02-26] MEDS: PANTOPRAZOLE 40 MG VIAL IV SCH (09:26)
[2021-02-26] MEDS: HEPARIN 5,000 UNIT/1 ML VIAL SUBCUT SCH ×2 (09:27→20:31)
[2021-02-26 11:23] LABS: ABG Base Excess 8.8 MMOL/L (-2.5-2.5); ABG HCO3 32.5 MMOL/L (20-26); ABG Oxygen Saturation 96.3 % (95-100); ABG PCO2 66.2 MM HG (35-48); ABG PO2 92.3 MM HG (80-95); ABG TCO2 33.6 MMOL/L (23-27)
[2021-02-26] MEDS: INSULIN GLARGINE 100 UNIT/ML SUBCUT SCH (20:30)
[2021-02-27] MEDS: INSULIN LISPRO 100 UNIT/ML SUBCUT SCH ×4 (00:21→18:19)
[2021-02-27] MEDS: ALBUTEROL/IPRATROPIUM 3 ML NEB RESP TX SCH ×4 (01:15→19:45)
[2021-02-27 04:10] LABS: Basophils % 0.6 % (0.0-0.8); Eosinophils # 0.1 10*3/uL (0.0-0.87); Eosinophils % 2.3 % (0.00-10.9); Hematocrit 29.4 VOL% (42.0-52.0); Hemoglobin 8.8 GM/DL (14.0-18.0); Immature Granulocytes % 0.6 %; Immature Granulocytes Absolute 0.03 #; Lymphocytes # 1.6 10*3/uL (1.4-4.0); Lymphocytes % 30.4 % (21.2-54.2); Mean Corpuscular HGB Conc 29.9 GM/DL (32-36); Mean Corpuscular Volume 100.3 FL (87-102); Mean Platelet Volume 10.6 FL (9.6-12.0); Monocytes % 7.5 % (1.7-12.7); Neutrophils % 58.6 % (38.7-73.9); Platelet Count 152 T/CUMM (130-400); Red Blood Count 2.93 MC/CUMM (3.8-5.5); Red Cell Distribution Width 18.1 % (9.3-17.3); White Blood Count 5.3 T/CUMM (4-12)
[2021-02-27 04:11] LABS: ABG HCO3 32.5 MMOL/L (20-26); ABG Oxygen Saturation 97.6 % (95-100); ABG PCO2 45.3 MM HG (35-48); ABG PH 7.474 (7.35-7.45); ABG PO2 105.1 MM HG (80-95); ABG TCO2 33.9 MMOL/L (23-27)
[2021-02-27 04:23] LABS: Calcium 8.4 MG/DL (8.5-10.1); Osmolality,Calculated 301.8 MOS/KG (273-304); Potassium 3.6 MMOL/L (3.5-5.1)
[2021-02-27 04:36] LABS: Eosinophils 3 % (0-10); Hypochromasia Slight; Lymphocytes 30 % (20-55); Platelet Estimate Normal; Segmented Neutrophils 60 % (50-85); Total Cells Counted 100
[2021-02-27] MEDS: LEVOTHYROXINE 50 MCG TABLET PO SCH (06:30)
[2021-02-27 08:22] VITALS: BP 153/93
[2021-02-27] MEDS: methylPREDNISolone SOD SUC 40 MG/1 ML VIAL IV SCH ×2 (08:58→18:28)
[2021-02-27] MEDS: FUROSEMIDE 40 MG/4 ML VIAL IV SCH (08:58)
[2021-02-27] MEDS: PANTOPRAZOLE 40 MG VIAL IV SCH (08:59)
[2021-02-27] MEDS: HEPARIN 5,000 UNIT/1 ML VIAL SUBCUT SCH ×2 (09:00→21:21)
[2021-02-27] MEDS: ASPIRIN CHEW 81 MG TABLET PO SCH (09:00)
[2021-02-27] MEDS: levETIRAcetam 500 MG TABLET PO SCH ×2 (09:00→21:21)
[2021-02-27] MEDS: buPROPion SR 100 MG TABLET PO SCH ×2 (09:00→21:21)
[2021-02-27 10:22] LABS: HIV Antigen/Antibody Result Nonreactive (Nonreactive)
[2021-02-27] MEDS: NICOTINE 21 MG/24 HR PATCH TRANSDERM SCH (12:07)
[2021-02-27] MEDS: VANCOMYCIN INJ 1,250 MG in SODIUM CHLORIDE 0.9% 250 ML IV SCH (17:36)
[2021-02-27] MEDS: INSULIN GLARGINE 100 UNIT/ML SUBCUT SCH (21:21)
[2021-02-28] MEDS: methylPREDNISolone SOD SUC 40 MG/1 ML VIAL IV SCH ×3 (01:20→18:14)
[2021-02-28] MEDS: INSULIN LISPRO 100 UNIT/ML SUBCUT SCH ×4 (01:21→18:15)
[2021-02-28] MEDS: ALBUTEROL/IPRATROPIUM 3 ML NEB RESP TX SCH ×4 (02:40→19:05)
[2021-02-28 03:53] LABS: ABG Base Excess 6.2 MMOL/L (-2.5-2.5); ABG HCO3 32.8 MMOL/L (20-26); ABG Oxygen Saturation 96.1 % (95-100); ABG PCO2 58.2 MM HG (35-48); ABG PH 7.369 (7.35-7.45); ABG PO2 90.4 MM HG (80-95); ABG TCO2 34.6 MMOL/L (23-27)
[2021-02-28 04:46] LABS: Basophils % 0.2 % (0.0-0.8); Hematocrit 33.6 VOL% (42.0-52.0); Hemoglobin 9.9 GM/DL (14.0-18.0); Immature Granulocytes % 0.9 %; Immature Granulocytes Absolute 0.06 #; Lymphocytes # 0.6 10*3/uL (1.4-4.0); Lymphocytes % 9.2 % (21.2-54.2); Mean Corpuscular HGB Conc 29.5 GM/DL (32-36); Mean Corpuscular Volume 100.6 FL (87-102); Mean Platelet Volume 10.8 FL (9.6-12.0); Monocytes % 3.5 % (1.7-12.7); Neutrophils % 86.2 % (38.7-73.9); Platelet Count 156 T/CUMM (130-400); Red Blood Count 3.34 MC/CUMM (3.8-5.5); Red Cell Distribution Width 17.2 % (9.3-17.3); White Blood Count 6.6 T/CUMM (4-12)
[2021-02-28 05:08] LABS: Calcium 8.8 MG/DL (8.5-10.1); Osmolality,Calculated 298.5 MOS/KG (273-304); Potassium 3.9 MMOL/L (3.5-5.1)
[2021-02-28] MEDS: LEVOTHYROXINE 50 MCG TABLET PO SCH (06:10)
[2021-02-28] MEDS: FUROSEMIDE 40 MG/4 ML VIAL IV SCH (08:30)
[2021-02-28] MEDS: PANTOPRAZOLE 40 MG VIAL IV SCH (08:40)
[2021-02-28] MEDS: HEPARIN 5,000 UNIT/1 ML VIAL SUBCUT SCH ×2 (08:44→20:45)
[2021-02-28] MEDS: buPROPion SR 100 MG TABLET PO SCH ×2 (08:45→20:46)
[2021-02-28] MEDS: ASPIRIN CHEW 81 MG TABLET PO SCH (08:45)
[2021-02-28] MEDS: levETIRAcetam 500 MG TABLET PO SCH ×2 (08:45→20:45)
[2021-02-28] MEDS: NICOTINE 21 MG/24 HR PATCH TRANSDERM SCH (08:46)
[2021-02-28 10:11] LABS: ABG Base Excess 6.4 MMOL/L (-2.5-2.5); ABG HCO3 34.1 MMOL/L (20-26); ABG Oxygen Saturation 97.4 % (95-100); ABG PCO2 68.3 MM HG (35-48); ABG PH 7.316 (7.35-7.45); ABG PO2 106.2 MM HG (80-95); ABG TCO2 36.2 MMOL/L (23-27); Allen Test Positive; Pt O2 Delivery Device Ventilator
[2021-02-28] MEDS: VANCOMYCIN INJ 1,250 MG in SODIUM CHLORIDE 0.9% 250 ML IV SCH (18:14)
[2021-02-28] MEDS: INSULIN GLARGINE 100 UNIT/ML SUBCUT SCH (20:45)
[2021-03-01] MEDS: ALBUTEROL/IPRATROPIUM 3 ML NEB RESP TX SCH ×4 (00:57→19:11)
[2021-03-01] MEDS: methylPREDNISolone SOD SUC 40 MG/1 ML VIAL IV SCH ×3 (00:58→17:34)
[2021-03-01] MEDS: INSULIN LISPRO 100 UNIT/ML SUBCUT SCH ×5 (00:59→23:55)
[2021-03-01 04:11] LABS: Allen Test Positive; Pt O2 Delivery Device Ventilator
[2021-03-01 04:13] LABS: ABG Base Excess 6.5 MMOL/L (-2.5-2.5); ABG HCO3 29.9 MMOL/L (20-26); ABG Oxygen Saturation 98.7 % (95-100); ABG PCO2 38.2 MM HG (35-48); ABG PH 7.512 (7.35-7.45); ABG PO2 136.2 MM HG (80-95); ABG TCO2 31.1 MMOL/L (23-27)
[2021-03-01 04:14] LABS: Basophils % 0.1 % (0.0-0.8); Eosinophils % 0.4 % (0.00-10.9); Hematocrit 30.8 VOL% (42.0-52.0); Hemoglobin 9.4 GM/DL (14.0-18.0); Immature Granulocytes Absolute 0.07 #; Lymphocytes % 14.8 % (21.2-54.2); Mean Corpuscular HGB Conc 30.5 GM/DL (32-36); Mean Corpuscular Volume 97.5 FL (87-102); Mean Platelet Volume 10.9 FL (9.6-12.0); Monocytes % 4.7 % (1.7-12.7); Platelet Count 159 T/CUMM (130-400); Red Blood Count 3.16 MC/CUMM (3.8-5.5); Red Cell Distribution Width 17.4 % (9.3-17.3); White Blood Count 6.8 T/CUMM (4-12)
[2021-03-01 04:29] LABS: Calcium 8.6 MG/DL (8.5-10.1); Osmolality,Calculated 300.4 MOS/KG (273-304); Potassium 3.5 MMOL/L (3.5-5.1)
[2021-03-01] MEDS: LEVOTHYROXINE 50 MCG TABLET PO SCH (06:07)
[2021-03-01] MEDS ORDERED: FUROSEMIDE 40 MG/4 ML VIAL IV ONE (08:32)
[2021-03-01] MEDS: HEPARIN 5,000 UNIT/1 ML VIAL SUBCUT SCH ×2 (10:15→21:03)
[2021-03-01] MEDS: ASPIRIN CHEW 81 MG TABLET PO SCH (10:16)
[2021-03-01] MEDS: PANTOPRAZOLE 40 MG VIAL IV SCH (10:16)
[2021-03-01] MEDS: buPROPion SR 100 MG TABLET PO SCH ×2 (10:17→21:04)
[2021-03-01] MEDS: levETIRAcetam 500 MG TABLET PO SCH ×2 (10:17→21:04)
[2021-03-01] MEDS: NICOTINE 21 MG/24 HR PATCH TRANSDERM SCH (10:19)
[2021-03-01] MEDS: AZITHROMYCIN INJ 500 MG in SODIUM CHLORIDE 0.9% 250 ML IV SCH (10:43)
[2021-03-01] MEDS: FUROSEMIDE 40 MG/4 ML VIAL IV SCH (12:43)
[2021-03-01] MEDS ORDERED: FUROSEMIDE INJ 160 MG in SODIUM CHLORIDE 0.9% 50 ML IV ONE (12:46)
[2021-03-01] MEDS: VANCOMYCIN INJ 1,250 MG in SODIUM CHLORIDE 0.9% 250 ML IV SCH (17:01)
[2021-03-01] MEDS: INSULIN GLARGINE 100 UNIT/ML SUBCUT SCH (21:03)
[2021-03-01] MEDS ORDERED: hydrALAZINE 20 MG/1 ML VIAL IV PRN (21:57)
[2021-03-02] MEDS: ALBUTEROL/IPRATROPIUM 3 ML NEB RESP TX SCH ×4 (00:50→19:00)
[2021-03-02 03:49] LABS: Basophils % 0.2 % (0.0-0.8); Eosinophils % 0.2 % (0.00-10.9); Hematocrit 31.6 VOL% (42.0-52.0); Hemoglobin 9.7 GM/DL (14.0-18.0); Immature Granulocytes % 0.8 %; Immature Granulocytes Absolute 0.05 #; Lymphocytes # 0.9 10*3/uL (1.4-4.0); Lymphocytes % 13.4 % (21.2-54.2); Mean Corpuscular HGB Conc 30.7 GM/DL (32-36); Mean Corpuscular Volume 97.5 FL (87-102); Mean Platelet Volume 10.8 FL (9.6-12.0); Monocytes % 5.5 % (1.7-12.7); Neutrophils % 79.9 % (38.7-73.9); Platelet Count 154 T/CUMM (130-400); Red Blood Count 3.24 MC/CUMM (3.8-5.5); White Blood Count 6.6 T/CUMM (4-12)
[2021-03-02 04:02] LABS: Calcium 8.5 MG/DL (8.5-10.1); Osmolality,Calculated 300.4 MOS/KG (273-304); Potassium 3.4 MMOL/L (3.5-5.1)
[2021-03-02 04:33] LABS: ABG Base Excess 4.6 MMOL/L (-2.5-2.5); ABG HCO3 28.5 MMOL/L (20-26); ABG Oxygen Saturation 99.3 % (95-100); ABG PCO2 42.3 MM HG (35-48); ABG PH 7.446 (7.35-7.45); ABG TCO2 26.2 MMOL/L (23-27); Allen Test Positive; Pt O2 Delivery Device Ventilator
[2021-03-02] MEDS: INSULIN LISPRO 100 UNIT/ML SUBCUT SCH ×3 (06:19→18:10)
[2021-03-02] MEDS: LEVOTHYROXINE 50 MCG TABLET PO SCH (06:20)
[2021-03-02] MEDS: HEPARIN 5,000 UNIT/1 ML VIAL SUBCUT SCH ×2 (08:51→20:31)
[2021-03-02] MEDS: methylPREDNISolone SOD SUC 40 MG/1 ML VIAL IV SCH ×3 (08:51→18:10)
[2021-03-02] MEDS: levETIRAcetam 500 MG TABLET PO SCH ×2 (08:52→20:31)
[2021-03-02] MEDS: PANTOPRAZOLE 40 MG VIAL IV SCH (08:52)
[2021-03-02] MEDS: buPROPion SR 100 MG TABLET PO SCH ×2 (08:53→20:31)
[2021-03-02] MEDS: ASPIRIN CHEW 81 MG TABLET PO SCH (08:53)
[2021-03-02] MEDS: NICOTINE 21 MG/24 HR PATCH TRANSDERM SCH (08:53)
[2021-03-02] MEDS: AZITHROMYCIN INJ 500 MG in SODIUM CHLORIDE 0.9% 250 ML IV SCH (08:54)
[2021-03-02] MEDS ORDERED: ALPRAZolam 0.25 MG TABLET PO ONE (10:31)
[2021-03-02] MEDS ORDERED: POTASSIUM CHLORIDE 20 MEQ TABLET PO ONE (12:20)
[2021-03-02 12:56] LABS: ABG Base Excess 1.9 MMOL/L (-2.5-2.5); ABG HCO3 26.1 MMOL/L (20-26); ABG PCO2 67.6 MM HG (35-48); ABG PH 7.264 (7.35-7.45); ABG TCO2 28.2 MMOL/L (23-27); Allen Test Positive; Pt O2 Delivery Device Ventilator
[2021-03-02] MEDS ORDERED: POTASSIUM CHLORIDE 20 MEQ PACK PO ONE (13:53)
[2021-03-02] MEDS: VANCOMYCIN INJ 1,250 MG in SODIUM CHLORIDE 0.9% 250 ML IV SCH (18:29)
[2021-03-02] MEDS: INSULIN GLARGINE 100 UNIT/ML SUBCUT SCH (20:32)
[2021-03-03] MEDS: INSULIN LISPRO 100 UNIT/ML SUBCUT SCH ×4 (00:21→18:24)
[2021-03-03] MEDS: methylPREDNISolone SOD SUC 40 MG/1 ML VIAL IV SCH ×3 (00:22→18:24)
[2021-03-03] MEDS: ALBUTEROL/IPRATROPIUM 3 ML NEB RESP TX SCH ×4 (01:00→18:31)
[2021-03-03 03:46] LABS: ABG Base Excess 3.8 MMOL/L (-2.5-2.5); ABG HCO3 27.9 MMOL/L (20-26); ABG Oxygen Saturation 99.5 % (95-100); ABG PCO2 42.5 MM HG (35-48); ABG PH 7.434 (7.35-7.45); ABG TCO2 25.7 MMOL/L (23-27)
[2021-03-03 04:09] LABS: Basophils % 0.1 % (0.0-0.8); Eosinophils % 0.1 % (0.00-10.9); Hemoglobin 10.2 GM/DL (14.0-18.0); Immature Granulocytes % 1.2 %; Immature Granulocytes Absolute 0.09 #; Lymphocytes # 1.1 10*3/uL (1.4-4.0); Lymphocytes % 13.5 % (21.2-54.2); Mean Corpuscular HGB Conc 30.9 GM/DL (32-36); Mean Corpuscular Volume 97.6 FL (87-102); Mean Platelet Volume 10.4 FL (9.6-12.0); Monocytes % 5.6 % (1.7-12.7); Neutrophils % 79.5 % (38.7-73.9); Platelet Count 161 T/CUMM (130-400); Red Blood Count 3.38 MC/CUMM (3.8-5.5); Red Cell Distribution Width 16.6 % (9.3-17.3); White Blood Count 7.8 T/CUMM (4-12)
[2021-03-03] MEDS: VANCOMYCIN INJ 1,250 MG in SODIUM CHLORIDE 0.9% 250 ML IV SCH (04:20)
[2021-03-03 04:28] LABS: Calcium 8.7 MG/DL (8.5-10.1); Osmolality,Calculated 301.3 MOS/KG (273-304); Potassium 3.5 MMOL/L (3.5-5.1)
[2021-03-03] MEDS: LEVOTHYROXINE 50 MCG TABLET PO SCH (06:04)
[2021-03-03] MEDS: HEPARIN 5,000 UNIT/1 ML VIAL SUBCUT SCH ×2 (09:05→20:31)
[2021-03-03] MEDS: PANTOPRAZOLE 40 MG VIAL IV SCH (09:05)
[2021-03-03] MEDS: buPROPion SR 100 MG TABLET PO SCH ×2 (09:06→20:31)
[2021-03-03] MEDS: NICOTINE 21 MG/24 HR PATCH TRANSDERM SCH (09:07)
[2021-03-03] MEDS: levETIRAcetam 500 MG TABLET PO SCH ×2 (09:07→20:30)
[2021-03-03] MEDS: AZITHROMYCIN INJ 500 MG in SODIUM CHLORIDE 0.9% 250 ML IV SCH (09:07)
[2021-03-03] MEDS: ASPIRIN CHEW 81 MG TABLET PO SCH (09:07)
[2021-03-03 13:58] LABS: ABG Base Excess -2.3 MMOL/L (-2.5-2.5); ABG HCO3 22.3 MMOL/L (20-26); ABG Oxygen Saturation 88.5 % (95-100); ABG TCO2 27.8 MMOL/L (23-27)
[2021-03-03 14:03] LABS: ABG PH 7.137 (7.35-7.45)
[2021-03-03 14:04] LABS: ABG PCO2 87.5 MM HG (35-48)
[2021-03-03 17:45] LABS: ABG Base Excess 0.4 MMOL/L (-2.5-2.5); ABG HCO3 24.7 MMOL/L (20-26); ABG Oxygen Saturation 92.6 % (95-100); ABG PCO2 65.1 MM HG (35-48); ABG PH 7.257 (7.35-7.45); ABG PO2 74.5 MM HG (80-95); ABG TCO2 26.8 MMOL/L (23-27); Allen Test Positive; Pt O2 Delivery Device BIPAP
[2021-03-03] MEDS: INSULIN GLARGINE 100 UNIT/ML SUBCUT SCH (20:31)
[2021-03-04] MEDS: INSULIN LISPRO 100 UNIT/ML SUBCUT SCH ×4 (00:52→18:18)
[2021-03-04] MEDS: methylPREDNISolone SOD SUC 40 MG/1 ML VIAL IV SCH ×3 (00:53→18:18)
[2021-03-04] MEDS: ALBUTEROL/IPRATROPIUM 3 ML NEB RESP TX SCH ×4 (01:00→19:08)
[2021-03-04 04:37] LABS: ABG Base Excess 1.1 MMOL/L (-2.5-2.5); ABG HCO3 28.2 MMOL/L (20-26); ABG Oxygen Saturation 93.1 % (95-100); ABG PCO2 57.2 MM HG (35-48); ABG PH 7.311 (7.35-7.45); ABG PO2 70.5 MM HG (80-95)
[2021-03-04 04:53] LABS: Albumin 2.5 G/DL (3.4-5.0); Bilirubin,Total 0.4 MG/DL (0.20-1.00); Calcium 8.6 MG/DL (8.5-10.1); Osmolality,Calculated 301.5 MOS/KG (273-304); Potassium 3.8 MMOL/L (3.5-5.1); Total Protein 6.5 G/DL (6.4-8.2)
[2021-03-04] MEDS: LEVOTHYROXINE 50 MCG TABLET PO SCH (06:16)
[2021-03-04] MEDS ORDERED: POTASSIUM CHLORIDE 20 MEQ TABLET PO PRN (08:13)
[2021-03-04] MEDS: FUROSEMIDE 40 MG/4 ML VIAL IV SCH ×2 (08:35→21:15)
[2021-03-04] MEDS: PANTOPRAZOLE 40 MG VIAL IV SCH (08:35)
[2021-03-04] MEDS: buPROPion SR 100 MG TABLET PO SCH ×2 (08:36→21:14)
[2021-03-04] MEDS: HEPARIN 5,000 UNIT/1 ML VIAL SUBCUT SCH ×2 (08:36→21:14)
[2021-03-04] MEDS: levETIRAcetam 500 MG TABLET PO SCH ×2 (08:36→21:14)
[2021-03-04] MEDS: NICOTINE 21 MG/24 HR PATCH TRANSDERM SCH (08:36)
[2021-03-04] MEDS: ASPIRIN CHEW 81 MG TABLET PO SCH (08:36)
[2021-03-04] MEDS: AZITHROMYCIN INJ 500 MG in SODIUM CHLORIDE 0.9% 250 ML IV SCH (08:39)
[2021-03-04] MEDS ORDERED: LIDOCAINE 1% 20 ML VIAL MISC INJ ONE (14:50)
[2021-03-04] MEDS: VANCOMYCIN INJ 1,250 MG in SODIUM CHLORIDE 0.9% 250 ML IV SCH (16:32)
[2021-03-04 16:40] LABS: Glucose,Pleural Fluid 348 MG/DL; LDH,Body Fluid 100 U/L
[2021-03-04 17:04] LABS: Lymphocytes,Pleural Fluid 28 %; Monocytes,Pleural Fluid 12 %; Neutrophils,Pleural Fluid 60 %
[2021-03-04 17:12] LABS: RBC,Pleural Fluid 31349 T/CUMM
[2021-03-04] MEDS: INSULIN GLARGINE 100 UNIT/ML SUBCUT SCH (21:14)
[2021-03-05] MEDS: INSULIN LISPRO 100 UNIT/ML SUBCUT SCH ×3 (00:24→12:18)
[2021-03-05] MEDS: methylPREDNISolone SOD SUC 40 MG/1 ML VIAL IV SCH ×2 (00:25→09:14)
[2021-03-05] MEDS: ALBUTEROL/IPRATROPIUM 3 ML NEB RESP TX SCH ×3 (00:58→12:50)
[2021-03-05 04:03] LABS: ABG Base Excess 2.9 MMOL/L (-2.5-2.5); ABG Oxygen Saturation 98.1 % (95-100); ABG PCO2 58.2 MM HG (35-48); ABG PH 7.323 (7.35-7.45); ABG TCO2 27.7 MMOL/L (23-27)
[2021-03-05 04:33] LABS: Calcium 8.8 MG/DL (8.5-10.1); Osmolality,Calculated 303.4 MOS/KG (273-304); Potassium 3.9 MMOL/L (3.5-5.1)
[2021-03-05] MEDS: LEVOTHYROXINE 50 MCG TABLET PO SCH (05:40)
[2021-03-05] MEDS: FUROSEMIDE 40 MG/4 ML VIAL IV SCH (09:11)
[2021-03-05] MEDS: HEPARIN 5,000 UNIT/1 ML VIAL SUBCUT SCH (09:16)
[2021-03-05] MEDS: levETIRAcetam 500 MG TABLET PO SCH (09:17)
[2021-03-05] MEDS: ASPIRIN CHEW 81 MG TABLET PO SCH (09:17)
[2021-03-05] MEDS: buPROPion SR 100 MG TABLET PO SCH (09:17)
[2021-03-05] MEDS: NICOTINE 21 MG/24 HR PATCH TRANSDERM SCH (09:18)
[2021-03-05] MEDS: PANTOPRAZOLE 40 MG VIAL IV SCH (09:19)
[2021-03-05] MEDS: AZITHROMYCIN INJ 500 MG in SODIUM CHLORIDE 0.9% 250 ML IV SCH (09:21)
[2021-03-05] MEDS ORDERED: METOPROLOL TARTRATE 25 MG TABLET PO SCH (10:26)
[2021-03-05] MEDS ORDERED: INSULIN GLARGINE 100 UNIT/ML SUBCUT SCH (21:00)
== END 2021-03-05 13:57 | DRG 291 ==
LOC: N.ED 18:44 → N.EDINP 20:36 → SUATTDRO 20:36 → N.TELEN 23:14 → N.ICU 02-23 13:54
PROVIDERS: ADMIT Hospitalist; ATTEND Internal Medicine